=== PATIENT | male | born 1975 | race Caucasian/White ===

== ENCOUNTER 2016-11-09 20:40 | Emergency (ER) | payer OTHER ==
[2016-11-09 20:49] VITALS: BP 150/112
--- NOTE | 2016-11-09 20:50 | ER Document Report ---
ED Medical Screen (RME) - General Stated Complaint: KNEE INJURY Mode of Arrival: Wheelchair Information source: Patient Notes: pt reports with c/o chronic knee pain that worsened three days ago, worse today. Reports he couldn't get out of bed today and was crying. Took has norco but still hurt. Denies trauma. JESSE. Pt wants an MRI. PT reports he had an xray done at his orthopedics on Friday, told he had arthritis. He reports hes had numerous surgeries on the knee. I have greeted and performed a rapid initial assessment of this patient. A comprehensive ED assessment and evaluation of the patient, analysis of test results and completion of the medical decision making process will be conducted by additional ED providers. - Related Data Allergies/Adverse Reactions: No Known Allergies Allergy (Unverified 11/09/16 20:44) Physical Exam - Vital signs Vitals: Temp Pulse Resp BP Pulse Ox 97.8 F 88 18 150/112 H 97 11/09/16 20:44 11/09/16 20:44 11/09/16 20:44 11/09/16 20:44 11/09/16 20:44 Course - Vital Signs Vital signs: Temp Pulse Resp BP Pulse Ox 97.8 F 88 18 150/112 H 97 11/09/16 20:44 11/09/16 20:44 11/09/16 20:44 11/09/16 20:44 11/09/16 20:44
--- NOTE | 2016-11-09 22:52 | ER Document Report ---
ED General - General Chief Complaint: Knee Pain Stated Complaint: KNEE INJURY Mode of Arrival: Wheelchair Notes: Patient is 41-year-old male who presents with complaint of pain in his left knee. Patient says he went to stand up this morning and felt pop in his knee. Did not twist. It did not slight forward. He says his eye followed by a local orthopedist for his chronic knee problems. Patient has a right lower extremity amputation and therefore uses a electric wheelchair most of time. He denies any other injuries. No other points of pain. He's had some swelling in his left knee sepsis occurred. TRAVEL OUTSIDE OF THE [place] IN LAST 30 DAYS: No - Related Data Allergies/Adverse Reactions: No Known Allergies Allergy (Unverified 11/09/16 20:44) Past Medical History - General Information source: Patient - Social History Smoking Status: Never Smoker Chew tobacco use (# tins/day): No Frequency of alcohol use: None Drug Abuse: None Family History: Reviewed & Not Pertinent Patient has suicidal ideation: No Patient has homicidal ideation: No Renal/ Medical History: Denies: Hx Peritoneal Dialysis Review of Systems - Review of Systems Notes: My Normal Review Basic REVIEW OF SYSTEMS: CONSTITUTIONAL : Denies fever, chills, or sweats. Denies recent illness. EENT: Denies eye, ear, throat, or mouth pain or symptoms. Denies nasal or sinus congestion. CARDIOVASCULAR: Denies chest pain. RESPIRATORY: Denies cough, cold, or chest congestion. Denies shortness of breath, difficulty breathing, or wheezing. GASTROINTESTINAL: Denies abdominal pain. Denies nausea, vomiting, or diarrhea. Denies constipation. Last BM: GENITOURINARY: Denies difficulty urinating, painful urination, burning, frequency, or blood in urine. FEMALE GENITOURINARY: Denies vaginal bleeding, abnormal or irregular periods. LMP: MUSCULOSKELETAL: Left knee pain SKIN: Denies rash or skin lesions. HEMATOLOGIC : Denies easy bruising or bleeding. LYMPHATIC: Denies swollen, enlarged glands. NEUROLOGICAL: Denies altered mental status or loss of consciousness. Denies headache. Denies weakness or paralysis or loss of use of either side. Denies problems with gait or speech. Denies sensory or motor loss. ALL OTHER SYSTEMS REVIEWED AND NEGATIVE. Physical Exam - Vital signs Vitals: Temp Pulse Resp BP Pulse Ox 97.8 F 88 18 150/112 H 97 03/11/17 20:44 11/09/16 20:44 11/09/16 20:44 11/09/16 20:44 11/09/16 20:44 - Notes Notes: General Appearance: Well nourished, alert, cooperative, no acute distress, mild obvious discomfort. Vitals: reviewed, See vital signs table. Extremities: , good pulses in all extremities, some swelling in the left knee. Patient has pain with any movement of the left knee. Pain is mostly in the lateral aspect anterior aspect of left knee. He is able extend the knee against gravity but has pain in doing so. No ligamentous laxity on exam. Skin: warm, dry, appropriate color, no rash Neuro: speech clear, oriented x 3, normal affect, responds appropriately to questions. Course - Vital Signs Vital signs: Temp Pulse Resp BP Pulse Ox 97.8 F 88 18 150/112 H 97 11/09/16 20:44 11/09/16 20:44 11/09/16 20:44 11/09/16 20:44 11/09/16 20:44 - Transfer of Care Notes: 11/09/16 23:05 Patient's history and location of pain is consistent with either a cruciate ligament tear or a possible lateral collateral ligament tear. Patient is oriented seemed orthopedic doctor for his chronic knee problems. He agrees to follow call their office Friday morning for close follow-up. I encouraged him to return to the ER if has a further concerns. His opiate pain medication at home. I will give him a dose of pain medication here to help take the edge off the pain so he can rest better today. I encouraged him to be nonweightbearing. He has a knee brace at home in which he will start to wear again. Patient's blood pressure is little elevated by suspected is more elevated than usual due to his pain. Dictation of this chart was performed using voice recognition software; therefore, there may be some unintended grammatical errors. 11/09/16 23:07 Discharge - Discharge Clinical Impression: Knee pain, acute Qualifiers: Laterality: left Qualified Code(s): M25.562 - Pain in left knee Condition: Good Disposition: HOME, SELF-CARE Additional Instructions: Your x-ray shows a small effusion but no fracture. These be sure to wear your knee brace and not to bear weight on your knee. Please call your orthopedic surgeon Rubio morning to make an appointment this week. I suspect that you have a ligament tear. I suspect is either a cruciate ligament tare or possible lateral collateral ligament tare. Please return to the ER if you have any further concerns. Referrals: ESTUARDO LONG MD [ACTIVE STAFF] - 11/11/16
[2016-11-09] MEDS ORDERED: HYDROMORPHONE HCL INJ/PF 2 MG/ML AMPULE IM ONE (22:56)
== END 2016-11-09 23:42 | disposition home or self-care (01) ==
LOC: ER 20:40
DX: M25.562 Pain in left knee (principal)
CPT/HCPCS: 99283; 96372; 73562; J1170

== ENCOUNTER → 2016-12-05 | Outpatient (CLI) | payer MEDICARE, MEDICAID | LOC: RAD 10:05 | PROVIDERS: ATTEND Family Medicine | DX: M25.562 Pain in left knee (principal); M17.12 Unilateral primary osteoarthritis, left knee ==

== ENCOUNTER → 2017-06-19 | Day surgery (SDC) | payer MEDICARE, MEDICAID ==
[~2017-06-19] MED LIST: BUPIVACAINE HCL 0.5 % INJ/PF 30 ML SDV ONE
--- NOTE | 2017-06-19 12:18 | Operative Report ---
PROCEDURE: KNEE RADIOFREQUENCY left under ultrasound guidance Preoperative Diagnosis: Left knee osteoarthritis Postoperative Diagnosis: Left knee osteoarthritis 1. Superolateral genicular branch from the vastus lateralis 2. Superomedial genicular branch from the vastus medialis 3. Inferomedial genicular branch from the saphenous nerve DATE OF PROCEDURE: 19 June 2017 ANESTHESIA: Local anesthesia COMPLICATIONS: None reported PROCEDURE IN DETAIL: Hx/PE/meds/allergies/applicable labs reviewed. No changes and no contraindications were found. Full description of the procedure was provided including benefits as well as possible complications including transient increased pain, stomach irritation, mood alteration, transient weakness or parasthesias as well as more serious nerve injury, bleeding, infection or allergic reaction. Informed consent was obtained and documented. The patient was brought to the procedure room and placed on the exam table in a comfortable supine position. The place for needle placement was obtained by manual palpation with ultrasound confirmation. The sterile field was prepared by chloroprep and sterile drapes. Local anesthesia superficial and deep was provided by local infiltration of 2% lidocaine. A 17g 50mm radiofrequency introducer needle with a 4 mm active tip was placed overlying the left knee joint and using fluoroscopic guidance the needle was advanced to a bony endpoint on the superiolateral portion of the femoral condyle of the left knee. A second needle was advanced to a bony endpoint on the superiomedial portion of the femoral condyle. A third needle was then placed over the inferiomedial portion of the tibial condyle until a bony endpoint was met. Attempted aspiration yielded no blood. Transverse ultrasound views showed all the needles at 50% depth of the femur and tibia. Motor stimulation was tested at 2.0 volts with no leg movement. Images were saved in AP and lateral. A mixture consisting of 0.5% bupivacaine was slowly injected. Then a radiofrequency ablation of each of the geniculate nerves were done at 80 degrees Celsius for 2 minutes and 30 seconds each. The needles were withdrawn. The patient tolerated the procedure well. After observation the patient was discharged with instructions and follow up. They were also provided contact information to call regarding any concerning symptoms or questions. IMPRESSION: 1. Successful left geniculate knee radiofrequency ablation was performed. 2. The patient was given prescription of home medicines. 3. RTC in 1-2 week(s).
== END ==
LOC: RAD 11:56
PROVIDERS: ATTEND Family Medicine
DX: M17.12 Unilateral primary osteoarthritis, left knee (principal)
CPT/HCPCS: 64640

== ENCOUNTER → 2018-01-23 | Day surgery (SDC) | payer MEDICARE, MEDICAID ==
[~2018-01-23] MED LIST changes: -BUPIVACAINE HCL 0.5 % INJ/PF 30 ML SDV ONE; +LIDOCAINE 1% INJ-PF (10 MG/ML) 30 ML SDV ONE
--- NOTE | 2018-01-23 15:54 | RADIOLOGY REPORT (SQ) ---
EXAM DESCRIPTION: ARTHRO SHOULDER INJECTION; FLUORO/NEEDLE PLACEMENT COMPLETED DATE/TIME: 01/23/2018 2:18 pm; 01/23/2018 2:17 pm REASON FOR STUDY: OTHER SPECIFIED ARTHRITIS, LEFT SHOULDER (M13.812) M13.812 OTHER SPECIFIED ARTHRI TIS, LEFT SHOULDER COMPARISON: None. FLUOROSCOPY TIME: 56 seconds 1 digital fluoro image saved to PACS. LIMITATIONS: None. PROCEDURE: Procedure, risks, benefits and alternatives explained to patient who then gave written co nsent. The posterior left shoulder was marked and a time out was called for correct procedure verific ation. Posterior entry site marked using fluoroscopic guidance. Shoulder prepped and draped using s terile technique. Local anesthesia achieved using 10 mL of 1% lidocaine injection. 22 g spinal nee dle introduced into the joint space under direct fluoroscopic visualization. Non-ionic contrast insti lled to confirm intra-articular position. Dilute Isovue-300 solution then injected. Needle removed and entry site covered with sterile bandage. No immediate complications noted. TECHNIQUE: Digital images acquired during fluoroscopy and stored on PACS. Patient immediately take n to the MR suite for additional imaging. INJECTION LOCATION: Left posterior glenohumeral joint CONTRAST TYPE AND AMOUNT: 3 mL of Isovue-300 was injected followed by 12 mL of dilute Isovue/saline m ixture for CT arthrogram IMPRESSION: SUCCESSFUL NEEDLE PLACEMENT AND INJECTION FOR LEFT SHOULDER CT ARTHROGRAM USING POSTERIO R APPROACH. COMMENT: Quality ID 145: Final reports for procedures using fluoroscopy that document radiation exp osure indices, or exposure time and number of fluorographic images (if radiation exposure indices are not available) TECHNICAL DOCUMENTATION: JOB ID: [id number] 1942 [employer]- All Rights Reserved Reading location - IP/workstation name: [facility]-[email or web address]
--- NOTE | 2018-01-23 15:54 | RADIOLOGY REPORT (SQ) ---
EXAM DESCRIPTION: ARTHRO SHOULDER INJECTION; FLUORO/NEEDLE PLACEMENT COMPLETED DATE/TIME: 01/23/2018 2:18 pm; 01/23/2018 2:17 pm REASON FOR STUDY: OTHER SPECIFIED ARTHRITIS, LEFT SHOULDER (M13.812) M13.812 OTHER SPECIFIED ARTHRI TIS, LEFT SHOULDER COMPARISON: None. FLUOROSCOPY TIME: 56 seconds 1 digital fluoro image saved to PACS. LIMITATIONS: None. PROCEDURE: Procedure, risks, benefits and alternatives explained to patient who then gave written co nsent. The posterior left shoulder was marked and a time out was called for correct procedure verific ation. Posterior entry site marked using fluoroscopic guidance. Shoulder prepped and draped using s terile technique. Local anesthesia achieved using 10 mL of 1% lidocaine injection. 22 g spinal nee dle introduced into the joint space under direct fluoroscopic visualization. Non-ionic contrast insti lled to confirm intra-articular position. Dilute Isovue-300 solution then injected. Needle removed and entry site covered with sterile bandage. No immediate complications noted. TECHNIQUE: Digital images acquired during fluoroscopy and stored on PACS. Patient immediately take n to the MR suite for additional imaging. INJECTION LOCATION: Left posterior glenohumeral joint CONTRAST TYPE AND AMOUNT: 3 mL of Isovue-300 was injected followed by 12 mL of dilute Isovue/saline m ixture for CT arthrogram IMPRESSION: SUCCESSFUL NEEDLE PLACEMENT AND INJECTION FOR LEFT SHOULDER CT ARTHROGRAM USING POSTERIO R APPROACH. COMMENT: Quality ID 145: Final reports for procedures using fluoroscopy that document radiation exp osure indices, or exposure time and number of fluorographic images (if radiation exposure indices are not available) TECHNICAL DOCUMENTATION: JOB ID: [id number] [employer]- All Rights Reserved Reading location - IP/workstation name: [email or web address]
--- NOTE | 2018-01-23 16:12 | RADIOLOGY REPORT (SQ) ---
EXAM DESCRIPTION: CT LT UPPER EXTREMITY WITH COMPLETED DATE/TIME: 01/23/2018 2:32 pm REASON FOR STUDY: OTHER SPECIFIED ARTHRITIS, LEFT SHOULDER (M13.812) M13.812 OTHER SPECIFIED ARTHRI TIS, LEFT SHOULDER COMPARISON: None. TECHNIQUE: Axial imaging performed through the leftshoulder with reformatted oblique coronal and obl ique sagittal imaging windowed for bone and soft tissues. All CT scanners at this facility use dose modulation, iterative reconstruction, and/or weight based d osing when appropriate to reduce radiation dose to as low as reasonably achievable (ALARA). [facility]: Dose Right [facility]: CareDose [facility]: Dose Right [facility]: Teradose 4D [facility]: Smart [place] [employer] RADIATION DOSE: CT Rad equipment meets quality standard of care and radiation dose reduction techniq ues were employed. CTDIvol: 28.8 mGy. DLP: 708 mGy-cm. mGy. LIMITATIONS: None. FINDINGS: The study was performed as a CT arthrogram left shoulder. The patient is post left humeral head arthroplasty with a humeral head articular surface prosthesis. No lucency around the hardware worrisome for loosening. There is extensive heterotopic ossification along the posterior left shoulder joint, with heterotopic bone 5 x 1 cm in size along the posterior aspect of the glenohumeral joint/distal infraspinatus musc le and tendon. This bony bar along the posterior joint prevented intra-articular contrast injection from posterior approach. Injected contrast is seen along the superficial muscles. There is a 2 x 2 cm loose body along the anterior inferior aspect of the glenohumeral joint, best carmen wn on sagittal image 28 and coronal image 19. The humeral head abuts the undersurface of the acromion with a [id number] appearance from full-thic kness supraspinatus tear. There is supraspinatus muscle atrophy. The subscapularis muscle and tendon are grossly intact. Acromioclavicular joint exhibits mild bony spurring. Coracoclavicular interval is intact. Left upper lobe in the field of view is unremarkable. There is a 2.5 x 1.7 cm prevascular lymph node on axial image 63. This is nonspecific but abnormal, and CT chest is recommended for followup. IMPRESSION: Post left humeral head arthroplasty. No lucency around the hardware worrisome for loose callie. Full thickness chronic appearing supraspinatus tear Heterotopic ossification/calcification along the posterior glenohumeral joint, along the distal supra spinatus muscle and tendon. TECHNICAL DOCUMENTATION: JOB ID: [id number] Quality ID # [id number]: Final reports with documentation of one or more dose reduction techniques (e.g., Au tomated exposure control, adjustment of the mA and/or kV according to patient size, use of iterative reconstruction technique) 2010 [employer]- All Rights Reserved Reading location - IP/workstation name: [facility]-[email or web address]
== END ==
LOC: RAD 13:16
PROVIDERS: ATTEND Orthopaedic Surgery
DX: M13.812 Other specified arthritis, left shoulder (principal)
CPT/HCPCS: 77002; 23350; 73201; J3490

== ENCOUNTER 2018-02-10 10:09 | Day surgery (SDC) | payer MEDICARE, MEDICAID ==
[~2018-02-10 10:09] MED LIST changes: +HYDROMORPHONE HCL INJ/PF 2 MG/ML AMPULE ONE; +LACTATED RINGERS 1000 ML IV PRN; +LIDOCAINE 0.5% INJ-PF (5 MG/ML) 50 ML SDV SUBCUT PRN; -LIDOCAINE 1% INJ-PF (10 MG/ML) 30 ML SDV ONE
[2018-02-10] MEDS ORDERED: FAMOTIDINE INJ/PF 20 MG/2 ML SDV IV ONE ×2 (10:54→11:00)
[2018-02-10] MEDS ORDERED: FENTANYL CITRATE INJ/PF 250 MCG/5 ML AMPULE ONE (11:11)
[2018-02-10] MEDS ORDERED: LIDOCAINE 2% INJ-PF (20 MG/ML) 10 ML AMPUL ONE (11:11)
[2018-02-10] MEDS ORDERED: MIDAZOLAM 2 MG/2 ML INJ ONE (11:11)
[2018-02-10] MEDS ORDERED: PROPOFOL INJ 200 MG/20 ML VIAL IV ONE (11:12)
[2018-02-10] MEDS ORDERED: ACETAMINOPHEN 1,000 MG/100 ML RTUPB IV ONE (11:12)
[2018-02-10] MEDS ORDERED: PHENYLEPHRINE HCL 0.25% NASAL SPRAY 15 ML ONE (11:13)
[2018-02-10] MEDS ORDERED: LIDOCAINE 2%/EPINEPHRINE INJ 1.7 ML CARTRIDGE ONE (11:25)
[2018-02-10] MEDS ORDERED: BUPIVACAINE HCL 0.5%/EPI 1:200000 INJ 1.8 ML CARTRIDGE ONE (11:26)
[2018-02-10 11:53] LABS: ANION GAP 10 (5-19); BLOOD UREA NITROGEN 13 mg/dL (7-20); CARBON DIOXIDE 23 mmol/L (22-30); CHLORIDE 109 mmol/L (98-107); GLUCOSE 190 mg/dL (75-110); POTASSIUM 4.3 mmol/L (3.6-5.0)
[2018-02-10] MEDS ORDERED: PROMETHAZINE HCL INJ 25 MG/1 ML VIAL IV PRN ×2 (12:49)
[2018-02-10] MEDS ORDERED: MORPHINE SULFATE 10 MG/ML INJ IV PRN (12:49)
[2018-02-10] MEDS ORDERED: MEPERIDINE HCL/PF INJ 25 MG/1 ML DISP.SYRIN IV PRN (12:49)
[2018-02-10] MEDS ORDERED: FENTANYL CITRATE INJ/PF 100 MCG/2 ML AMPUL IV PRN ×3 (12:49)
[2018-02-10] MEDS ORDERED: ONDANSETRON HCL INJ/PF 4 MG/2 ML SDV IV PRN (12:49)
[2018-02-10] MEDS ORDERED: OXYCODONE-ACETAMINOPHEN 5-325 MG TABLET PO PRN ×3 (12:49→13:51)
[2018-02-10] MEDS ORDERED: DIPHENHYDRAMINE HCL 50 MG/ML VIAL IV PRN (12:49)
[2018-02-10] MEDS: FENTANYL CITRATE INJ/PF 100 MCG/2 ML AMPUL ONE ×2 (13:57→16:02)
[2018-02-10] MEDS ORDERED: METOCLOPRAMIDE HCL INJ/PF 10 MG/2 ML SDV ONE (15:12)
[2018-02-10] MEDS ORDERED: DEXAMETHASONE SOD PHOSPHATE INJ 4 MG/1 ML VIAL ONE (15:12)
[2018-02-10] MEDS ORDERED: ONDANSETRON HCL INJ/PF 4 MG/2 ML SDV ONE (15:12)
[2018-02-10] MEDS ORDERED: SUCCINYLCHOLINE CHLORIDE INJ 200 MG/10 ML VIAL ONE (15:12)
--- NOTE | 2018-02-10 16:10 | Operative Report ---
Operative Report DATE OF SURGERY: 02/10/18 PREOPERATIVE DIAGNOSIS: Dental caries and right mandibular anderson POSTOPERATIVE DIAGNOSIS: Same OPERATION: Surgical removal of teeth numbers 1, 2, 3, 4, 5, 6, 7, 8, 9, 10, 11, 12, 13, 14, 15, 16, 18, 19, 21, 22, 23, 24, 25, 26, 27, 28, 29, 30, 31 and 32 with alveoloplasties of all 4 quadrants and removal of the mandibular right anderson SURGEON: NONA FRANKLIN ANESTHESIA: GA TISSUE REMOVED OR ALTERED: Teeth and bone which were discarded COMPLICATIONS: None ESTIMATED BLOOD LOSS: 30 mL INTRAOPERATIVE FINDINGS: Grossly decayed and nonrestorable teeth. Right mandibular anderson. PROCEDURE: The patient was brought into operating room #3 and placed on the operating room table in supine position. General anesthesia was induced via a peripheral IV and continued utilizing nasoendotracheal intubation. The patient was then prepped and draped in the usual fashion for an intraoral procedure. A total of 6 carpules of 2% Lidocaine with 1:100K Epi and for carpules of 0.5% Marcaine with 1:200K Epi were delivered to the planned surgical sites via both infiltration and nerve block. The oral cavity and oropharynx were suctioned and a moistened oropharyngeal throat pack was placed. A bite block was used throughout the procedure. Full thickness mucoperisteal flaps were elevated. Ostectomy was completed as needed. Teeth were sectioned as needed. Teeth were delivered with elevators and forceps. Alveoloplasties were completed using rongeurs and bone files. The right mandibular anderson was removed utilizing a fissure bur on a rotating osteotome and a mallet and chisel. After removal of the anderson the underlying bone was smoothed using a bone file. All sites debrided and irrigated. No sinus exposure noted. Mandible intact post op. GERBER not visualized. Wounds reapproximated and sutured with 4-0 chromic gut. The oral cavity was suctioned and found to be free of debris. The throat pack was removed. The oropharynx was suctioned. Gauze packs were placed bilaterally to aid in continued hemastasis. The patient was awakened from general anesthesia, extubated in the operating room and taken to recovery in spontaneous breathing fashion.
[2018-02-10 16:26] VITALS: BP 120/81
== END 2018-02-10 15:00 | disposition home or self-care (01) ==
LOC: OROUT 10:09
PROVIDERS: ATTEND Dentist Oral and Maxillofacial Surgery
DX: K02.9 Dental caries, unspecified (principal); M27.0 Developmental disorders of jaws; K08.9 Disorder of teeth and supporting structures, unspecified; K13.79 Other lesions of oral mucosa; I10 Essential (primary) hypertension; E66.9 Obesity, unspecified; Z68.41 Body mass index [BMI] 40.0-44.9, adult
CPT/HCPCS: 170; 36415; 80048; 88304; J0131; J0330; J1100; J1170; J2250; J2405; J2704; J2765; J3010; J3490; S0028

== ENCOUNTER 2018-04-29 09:15 | Emergency (ER) | payer MEDICARE, MEDICAID ==
[2018-04-29] MEDS ORDERED: NORMAL SALINE 1000 ML 1,000 ML IV ONE ×2 (09:31→10:47)
[2018-04-29] MEDS ORDERED: FENTANYL CITRATE INJ/PF 100 MCG/2 ML AMPUL IV ONE (09:32)
[2018-04-29] MEDS ORDERED: ONDANSETRON HCL INJ/PF 4 MG/2 ML SDV IV ONE (09:32)
[2018-04-29] MEDS ORDERED: KETOROLAC TROMETHAMINE INJ/PF 30 MG/1 ML SDV IV ONE ×2 (09:32→11:09)
[2018-04-29] MEDS ORDERED: METOCLOPRAMIDE HCL INJ/PF 10 MG/2 ML SDV IV ONE (09:33)
--- NOTE | 2018-04-29 09:35 | ER Document Report ---
ED Medical Screen (RME) - General Chief Complaint: Flank Pain Stated Complaint: FLANK PAIN, HEADACHE Time Seen by Provider: 04/29/18 09:28 Notes: 42 years old male with history of diabetes hypertension right [id number] amputation due to accident, presents with 2-3 day history of fever General body aches and pain particularly over the right flank and mid abdomen. Associated with nausea no vomiting. Denies any dysuria frequency urgency or hematuria. Denies any earache sore throat. Denies any chest pain or difficulty in breathing. TRAVEL OUTSIDE OF THE [place] IN LAST 30 DAYS: No - Related Data Allergies/Adverse Reactions: No Known Allergies Allergy (Verified 04/29/18 09:16) Past Medical History - Social History Chew tobacco use (# tins/day): No Frequency of alcohol use: None Drug Abuse: None - Past Medical History Cardiac Medical History: Reports: Hx Hypertension Denies: Hx Coronary Artery Disease, Hx Heart Attack Pulmonary Medical History: Denies: Hx Asthma, Hx Bronchitis, Hx COPD, Hx Pneumonia Neurological Medical History: Reports: Hx Migraine. Denies: Hx Cerebrovascular Accident, Hx Seizures Endocrine Medical History: Reports: Hx Diabetes Mellitus Type 2 Renal/ Medical History: Reports: Hx Kidney Stones. Denies: Hx Peritoneal Dialysis Musculoskeltal Medical History: Reports Hx Arthritis - bilat shoulders Past Surgical History: Reports: Hx Orthopedic Surgery - L knee, R leg amputation - Immunizations Hx Diphtheria, Pertussis, Tetanus Vaccination: Yes History of Influenza Vaccine for 06/2017 - 10/2017 Season: Yes Influenza Administration Date for 06/2017 - 10/2017 Season: 10/02/17 Physical Exam - Vital signs Vitals: Temp Pulse Resp BP Pulse Ox 100.5 F H 126 H 20 170/96 H 97 04/29/18 09:23 04/29/18 09:23 04/29/18 09:23 04/29/18 09:23 04/29/18 09:23 Course - Vital Signs Vital signs: Temp Pulse Resp BP Pulse Ox 100.5 F H 126 H 20 170/96 H 97 04/29/18 09:23 04/29/18 09:23 04/29/18 09:23 04/29/18 09:23 04/29/18 09:23 Doctor's Discharge - Discharge Referrals: JANET HERNANDEZ DO [Primary Care Provider] - Follow up as needed
[2018-04-29 10:23] LABS: HEMATOCRIT 38.3 % (37.9-51.0); HEMOGLOBIN 12.6 g/dL (13.5-17.0); MEAN CORPUSCULAR HGB CONC 32.9 g/dL (32.0-36.0); MEAN CORPUSCULAR VOLUME 76 fl (80-97); PLATELET COUNT 302 10^3/uL (150-450); RED BLOOD COUNT 5.03 10^6/uL (4.35-5.55); RED CELL DISTRIBUTION WIDTH 16.6 % (11.5-14.0); WHITE BLOOD COUNT 17.7 10^3/uL (4.0-10.5)
[2018-04-29] MEDS ORDERED: FENTANYL CITRATE INJ/PF 100 MCG/2 ML AMPUL ONE (10:23)
[2018-04-29 10:30] LABS: APPEARANCE,URINE CLEAR; BILIRUBIN,URINE NEGATIVE (NEGATIVE); COLOR,URINE STRAW; GLUCOSE, URINE >=500 mg/dL (NEGATIVE); KETONES,URINE NEGATIVE (NEGATIVE); LEUKOCYTE ESTERASE,URINE MODERATE (NEGATIVE); NITRITE,URINE NEGATIVE (NEGATIVE); PROTEIN,URINE NEGATIVE (NEGATIVE); UROBILINOGEN,URINE NEGATIVE mg/dL (<2.0)
[2018-04-29] MEDS ORDERED: CEFTRIAXONE 1 GM/D5W RTU 50 ML IV ONE (10:47)
--- NOTE | 2018-04-29 10:50 | RADIOLOGY REPORT (SQ) ---
EXAM DESCRIPTION: ACUTE ABDOMEN SERIES COMPLETED DATE/TIME: 04/29/2018 10:35 am REASON FOR STUDY: Abdominal pain COMPARISON: None. NUMBER OF VIEWS: Three views. TECHNIQUE: Frontal chest, supine abdomen and upright/decubitus abdomen radiographic images acquired. LIMITATIONS: None. FINDINGS: CHEST: Lungs clear of infiltrates. FREE AIR: None. No abnormal gas collections. BOWEL GAS PATTERN: Nonobstructive pattern. No dilated loops or air fluid levels. CALCIFICATIONS: No suspicious calcifications. HARDWARE: IVC filter. Mesh graft anchors. SOFT TISSUES: No gross mass or suggestion of organomegaly. BONES: No acute abnormality. There is deformity of the right side of the pelvis from prior trauma. OTHER: No other significant finding. IMPRESSION: NO RADIOGRAPHIC EVIDENCE FOR ACUTE ABDOMINAL DISEASE. TECHNICAL DOCUMENTATION: JOB ID: [id number] [employer]- All Rights Reserved Reading location - IP/workstation name: [email or web address]
[2018-04-29 10:52] LABS: ALANINE AMINOTRANSFERASE 18 U/L (21-72); ALBUMIN 3.9 g/dL (3.5-5.0); ALKALINE PHOSPHATASE 133 U/L (38-126); ANION GAP 14 (5-19); ASPARTATE AMINO TRANSFERASE 19 U/L (17-59); BILIRUBIN,DIRECT 0.5 mg/dL (0.0-0.4); BILIRUBIN,TOTAL 1.3 mg/dL (0.2-1.3); BLOOD UREA NITROGEN 9 mg/dL (7-20); CALCIUM 9.7 mg/dL (8.4-10.2); CARBON DIOXIDE 17 mmol/L (22-30); CHLORIDE 108 mmol/L (98-107); GLUCOSE 368 mg/dL (75-110); LIPASE 52.3 U/L (23-300); POTASSIUM 4.1 mmol/L (3.6-5.0); SODIUM 139.3 mmol/L (137-145); TOTAL PROTEIN 7.6 g/dL (6.3-8.2)
[2018-04-29] MEDS ORDERED: ACETAMINOPHEN 325 MG TABLET PO ONE (10:54)
[2018-04-29 10:59] LABS: ABSOLUTE LYMPHOCYTES# (MANUAL) 1.1 10^3/uL (0.5-4.7); ABSOLUTE MONOCYTES # (MANUAL) 0.5 10^3/uL (0.1-1.4); ABSOLUTE NEUTROPHILS# (MANUAL) 16.1 10^3/uL (1.7-8.2); BASOPHILS % (MANUAL) 0 % (0-2); EOSINOPHILS % (MANUAL) 0 % (0-6); LYMPHOCYTES % (MANUAL) 6 % (13-45); MONOCYTES % (MANUAL) 3 % (3-13); SEGMENTED NEUTROPHILS % (MAN) 91 % (42-78); TOTAL CELLS COUNTED 100
--- NOTE | 2018-04-29 10:59 | ER Document Report ---
ED General - General Chief Complaint: Flank Pain Stated Complaint: FLANK PAIN, HEADACHE Time Seen by Provider: 04/29/18 09:28 TRAVEL OUTSIDE OF THE [place] 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 Patient states that he had one episode of vomiting this morning. Patient states that he has been eating and drinking without any difficulties otherwise and has been pushing fluids. He denies any drug allergies. Patient states that he does spend some time outside sitting in the [place], but is otherwise does not go out in the boothe or tall grass. He has not noticed any ticks or tick bites. He denies any drug allergies. Patient states that his discomfort in the middle lower abdomen does not radiate. Patient has had a history of kidney stones, but states that this is not like a kidney stone for him. Patient states that he had flank pain with his kidney stones before and does not have that at this time. Denies any headache, head injury, neck pain/ stiffness, changes in vision/speech/mentation/hearing, URI, sore throat, chest pain, palpitations, syncope, cough, shortness of breath, wheeze, dyspnea, diarrhea, urinary retention, dysuria, hematuria, loss of control of bowel or bladder, numbness/tingling, saddle anesthesia, muscle paralysis/weakness, or rash. - Related Data Allergies/Adverse Reactions: No Known Allergies Allergy (Verified 04/29/18 09:16) Past Medical History - Social History Smoking Status: Never Smoker Chew tobacco use (# tins/day): No Frequency of alcohol use: None Drug Abuse: None Family History: Reviewed & Not Pertinent Patient has suicidal ideation: No Patient has homicidal ideation: No - Past Medical History Cardiac Medical History: Reports: Hx Hypertension Denies: Hx Coronary Artery Disease, Hx Heart Attack Pulmonary Medical History: Denies: Hx Asthma, Hx Bronchitis, Hx COPD, Hx Pneumonia Neurological Medical History: Reports: Hx Migraine. Denies: Hx Cerebrovascular Accident, Hx Seizures Endocrine Medical History: Reports: Hx Diabetes Mellitus Type 2 Renal/ Medical History: Reports: Hx Kidney Stones. Denies: Hx Peritoneal Dialysis Musculoskeletal Medical History: Reports Hx Arthritis - bilat shoulders Past Surgical History: Reports: Hx Orthopedic Surgery - L knee, R leg amputation - Immunizations Hx Diphtheria, Pertussis, Tetanus Vaccination: Yes Review of Systems - Review of Systems -: Yes All other systems reviewed and negative Physical Exam - Vital signs Vitals: Temp Pulse Resp BP Pulse Ox 100.5 F H 126 H 20 170/96 H 97 04/29/18 09:23 04/29/18 09:23 04/29/18 09:23 04/29/18 09:23 04/29/18 09:23 - Notes Notes: PHYSICAL EXAMINATION: GENERAL: Well-appearing, well-nourished and in no acute distress. HEAD: Atraumatic, normocephalic. EYES: Pupils equal round and reactive to light, extraocular movements intact, sclera anicteric, conjunctiva are normal. ENT: Nares patent and without discharge. oropharynx clear without exudates. No tonsilar hypertrophy or erythema. Moist mucous membranes. NECK: Normal range of motion, supple without lymphadenopathy LUNGS: Breath sounds clear to auscultation bilaterally and equal. No wheezes rales or rhonchi. HEART: Regular rate and rhythm without murmurs, rubs, gallops. ABDOMEN: Soft, nondistended abdomen. No guarding, no rebound. No masses appreciated. Normal bowel sounds present. No CVA tenderness bilaterally. + mild tenderness to the suprapubic area. No tenderness at Mc[place]. Musculoskeletal: FROM to passive/active. Strength 5+/5. Above knee amputation, rt. Extremities: No cyanosis, clubbing, or edema b/l. Peripheral pulses 2+. Capillary refill less than 3 seconds. NEUROLOGICAL: Cranial nerves grossly intact. Normal speech, normal gait. PSYCH: Normal mood, normal affect. SKIN: Warm, Dry, normal turgor, no rashes or lesions noted. Course - Re-evaluation Re-evalutation: 04/29/18 13:25 Patient is a well-hydrated 42-year-old male who presents to the ED with fever, urinary yeast infxn, and an acute UTI. Vitals are acceptable without any significant tachycardia, tachypnea, or hypoxia at this time. PE is otherwise unremarkable. Patient had some mild tenderness at the suprapubic area which would correlate well with his urinalysis results. Urine culture is pending. 150 mg of Diflucan given p.o. today as well as Toradol IV, fluids, and 1 g of Rocephin. Acute abd series negative. CBC showed an elevated white count at 17.7 with left shift. CMP is acceptable at this time, did show elevated glucose without any gap. There is no hyponatremia and no elevated LFTs aside from minimal elevation to the alk phos, and no reported tick bite or known tick on the body to have a high suspicion for Whitfield spotted fever, but will still remain within the differential. Patient is nontoxic-appearing and is tolerating p.o. without any difficulties. I did review this with Dr. Sahu, no other work up warranted at this time. I will send him home with a prescription for Keflex. Conservative measures for symptoms otherwise. Recheck with your PCM in 2-3 days. Return to the ED with any worsening/concerning symptoms otherwise as reviewed in discharge. Patient is in agreement. - Vital Signs Vital signs: Temp Pulse Resp BP Pulse Ox 99.0 F 98 18 125/80 98 04/29/18 13:15 04/29/18 12:33 04/29/18 12:33 04/29/18 12:33 04/29/18 12:33 - Laboratory Result Diagrams: 04/29/18 10:00 04/29/18 10:00 Laboratory results interpreted by me: 04/29/18 04/29/18 04/29/18 10:00 10:00 10:00 WBC 17.7 H Hgb 12.6 L MCV 76 L MCH 25.0 L RDW 16.6 H Seg Neuts % (Manual) 91 H Lymphocytes % (Manual) 6 L Abs Neuts (Manual) 16.1 H Chloride 108 H Carbon Dioxide 17 L Glucose 368 H Direct Bilirubin 0.5 H ALT 18 L Alkaline Phosphatase 133 H Urine Glucose (UA) >=500 H Urine Blood MODERATE H Ur Leukocyte Esterase MODERATE H Discharge - Discharge Clinical Impression: Acute UTI (urinary tract infection), Yeast UTI Fever Qualifiers: Fever type: unspecified Qualified Code(s): R50.9 - Fever, unspecified Condition: Stable Disposition: HOME, SELF-CARE Instructions: Cephalexin ([facility]), Urinary Tract Infection ([facility]) Additional Instructions: Push fluids (i.e. water, cranberry juice--caution as it may cause elevation in your sugar levels) Proper hygenic technique Keep the skin clean Tylenol/ibuprofen as needed Take medications as directed F/u with your PCM in 2-3 days for a recheck Consider consult with a Urologist for ongoing/worsening symptoms. Return to the ED with any worsening symptoms and/or development of fever, headache, chest pain, palpitations, syncope, shortness of breath, trouble breathing, abdominal pain, n/v/d, blood in stool/urine, loss of control of bowel /bladder, urinary retention, or other worsening symptoms that are concerning to you. Prescriptions: Cephalexin Monohydrate [Keflex 500 mg Capsule] 500 mg PO TID #21 capsule Forms: Elevated Blood Pressure Referrals: [facility] [Provider Group] - Follow up as needed
[2018-04-29 11:00] LABS: ANISOCYTOSIS 1+; HYPOCHROMASIA SLIGHT; OVALOCYTES 1+; PLATELET COMMENT ADEQUATE; POIKILOCYTOSIS 1+
[2018-04-29] MEDS ORDERED: CEFTRIAXONE INJ 1000 MG VIAL IV ONE (11:00)
[2018-04-29] MEDS ORDERED: FLUCONAZOLE 100 MG TABLET PO ONE (11:11)
[2018-04-29] MEDS ORDERED: CEFTRIAXONE SODIUM 1,000 MG in DEXTROSE 5%-WATER 50 ML IV ONE (12:00)
[2018-04-29 12:35] VITALS: BP 125/80
== END 2018-04-29 13:58 | disposition home or self-care (01) ==
LOC: ER 09:15
DX: B37.49 Other urogenital candidiasis (principal); R50.9 Fever, unspecified; R10.9 Unspecified abdominal pain; R51 Headache; E11.9 Type 2 diabetes mellitus without complications; I10 Essential (primary) hypertension; Z87.442 Personal history of urinary calculi
CPT/HCPCS: 96376; 99284; 96361; 96375; 96365; 36415; 87086; 83690; 85025; 87088; 80053; 81001; 87186; 74022; J3010; J1885; J2765; J0696; J2405; J7030; A9270

== ENCOUNTER → 2018-05-26 | Outpatient (CLI) | payer OTHER, MEDICARE, MEDICAID ==
[2018-05-26 11:15] LABS: ABSOLUTE EOSINOPHILS # (AUTO) 0.2 10^3/uL (0.0-0.6); ABSOLUTE LYMPHOCYTES (AUTO) 1.3 10^3/uL (0.5-4.7); ABSOLUTE MONOCYTES (AUTO) 0.4 10^3/uL (0.1-1.4); ABSOLUTE NEUT (AUTO) 4.6 10^3/uL (1.7-8.2); BASOPHILS % (AUTO) 0.3 % (0-2); HEMATOCRIT 36.3 % (37.9-51.0); LYMPHOCYTES % (AUTO) 19.8 % (13-45); MEAN CORPUSCULAR HEMOGLOBIN 24.5 pg (27.0-33.4); MEAN CORPUSCULAR VOLUME 74 fl (80-97); MONOCYTES % (AUTO) 6.2 % (3-13); PLATELET COUNT 343 10^3/uL (150-450); RED BLOOD COUNT 4.89 10^6/uL (4.35-5.55); RED CELL DISTRIBUTION WIDTH 14.9 % (11.5-14.0); SEGMENTED NEUTROPHILS % (AUTO) 70.7 % (42-78); TOTAL CELLS COUNTED % (AUTO) 100 %; WHITE BLOOD COUNT 6.5 10^3/uL (4.0-10.5)
[2018-05-26 11:16] LABS: AMORPHOUS SEDIMENT,URINE TRACE /HPF; APPEARANCE,URINE CLOUDY; BILIRUBIN,URINE NEGATIVE (NEGATIVE); COLOR,URINE YELLOW; GLUCOSE, URINE 150 mg/dL (NEGATIVE); KETONES,URINE NEGATIVE (NEGATIVE); LEUKOCYTE ESTERASE,URINE LARGE (NEGATIVE); NITRITE,URINE NEGATIVE (NEGATIVE); PROTEIN,URINE 30 mg/dL (NEGATIVE); URINE SPECIFIC GRAVITY 1.014; UROBILINOGEN,URINE NEGATIVE mg/dL (<2.0)
--- NOTE | 2018-05-26 11:24 | RADIOLOGY REPORT (SQ) ---
EXAM DESCRIPTION: CHEST PA/LATERAL COMPLETED DATE/TIME: 05/26/2018 11:06 am REASON FOR STUDY: PRE-OP COMPARISON: None. EXAM PARAMETERS: NUMBER OF VIEWS: two views TECHNIQUE: Digital Frontal and Lateral radiographic views of the chest acquired. RADIATION DOSE: NA LIMITATIONS: none FINDINGS: LUNGS AND PLEURA: No opacities, masses or pneumothorax. No pleural effusion. MEDIASTINUM AND HILAR STRUCTURES: No masses or contour abnormalities. HEART AND VASCULAR STRUCTURES: Heart normal size. No evidence for failure. BONES: No acute findings. HARDWARE: None in the chest. OTHER: Prior left humeral head arthroplasty. IMPRESSION: 1. NO SIGNIFICANT RADIOGRAPHIC FINDING IN THE CHEST. TECHNICAL DOCUMENTATION: JOB ID: [id number] [employer]- All Rights Reserved Reading location - IP/workstation name: [email or web address]
[2018-05-26 11:36] LABS: ANION GAP 9 (5-19); BLOOD UREA NITROGEN 9 mg/dL (7-20); CALCIUM 8.8 mg/dL (8.4-10.2); CARBON DIOXIDE 26 mmol/L (22-30); CHLORIDE 103 mmol/L (98-107); GLUCOSE 175 mg/dL (75-110); POTASSIUM 3.9 mmol/L (3.6-5.0); SODIUM 137.7 mmol/L (137-145)
--- NOTE | 2018-05-26 16:59 | EKG REPORT ---
SEVERITY:- NORMAL ECG - SINUS RHYTHM : Confirmed by: Cierra Lerner MD 26-May-2018 16:58:28
== END ==
LOC: OD 09:52
PROVIDERS: ATTEND Orthopaedic Surgery
DX: Z01.818 Encounter for other preprocedural examination (principal); E11.9 Type 2 diabetes mellitus without complications
CPT/HCPCS: 36415; 71046; 80048; 81001; 83036; 85025; 93005; 93010

== ENCOUNTER 2018-06-03 05:52 | Day surgery (SDC) | payer OTHER, MEDICARE, MEDICAID ==
[~2018-06-03 05:52] MED LIST changes: +CEFAZOLIN 2 GM/D5W RTU 2 GM/50 ML RTUPB IV PRN; -HYDROMORPHONE HCL INJ/PF 2 MG/ML AMPULE ONE; -LACTATED RINGERS 1000 ML IV PRN; -LIDOCAINE 0.5% INJ-PF (5 MG/ML) 50 ML SDV SUBCUT PRN
[2018-06-03] MEDS ORDERED: CEFAZOLIN 2 GM/D5W RTU 2 GM/50 ML RTUPB IV ONE (06:08)
[2018-06-03] MEDS ORDERED: ONDANSETRON HCL INJ/PF 4 MG/2 ML SDV ONE ×2 (07:00→08:57)
[2018-06-03] MEDS ORDERED: DEXAMETHASONE SOD PHOSPHATE INJ 4 MG/1 ML VIAL ONE ×2 (07:00→08:57)
[2018-06-03] MEDS ORDERED: FENTANYL CITRATE INJ/PF 100 MCG/2 ML AMPUL ONE ×2 (07:00→08:56)
[2018-06-03] MEDS ORDERED: MIDAZOLAM 2 MG/2 ML INJ ONE ×2 (07:00→08:57)
[2018-06-03] MEDS ORDERED: PROPOFOL INJ 200 MG/20 ML VIAL IV ONE ×2 (07:00→08:57)
[2018-06-03] MEDS ORDERED: BUPIVACAINE HCL 0.5 % INJ/PF 30 ML SDV ONE (07:17)
[2018-06-03] MEDS ORDERED: LIDOCAINE 1%/EPINEPHRINE INJ 20 ML VIAL ONE (07:18)
[2018-06-03] MEDS ORDERED: MEPERIDINE HCL/PF INJ 25 MG/1 ML DISP.SYRIN IV PRN (08:26)
[2018-06-03] MEDS ORDERED: OXYCODONE-ACETAMINOPHEN 5-325 MG TABLET PO PRN ×2 (08:26)
[2018-06-03] MEDS ORDERED: PROMETHAZINE HCL INJ 25 MG/1 ML VIAL IV PRN ×2 (08:26)
[2018-06-03] MEDS ORDERED: MORPHINE SULFATE 10 MG/ML INJ IV PRN (08:26)
[2018-06-03] MEDS ORDERED: ONDANSETRON HCL INJ/PF 4 MG/2 ML SDV IV PRN (08:26)
[2018-06-03] MEDS ORDERED: DIPHENHYDRAMINE HCL 50 MG/ML VIAL IV PRN (08:26)
[2018-06-03] MEDS ORDERED: FENTANYL CITRATE INJ/PF 100 MCG/2 ML AMPUL IV PRN ×3 (08:26)
--- NOTE | 2018-06-03 08:43 | Discharge Summary ---
Discharge Summary (SDC) - Discharge Final Diagnosis: Left medial meniscal tear Date of Surgery: 06/03/18 Discharge Date: 06/03/18 Condition: Good Treatment or Instructions: Removed compressive wrap on Friday. The underlying OpSite dressing can be left in place until you return to the orthopedic clinic Prescriptions: Oxycodone HCl [Oxy-Ir 5 mg Tablet] 5 mg PO Q6 PRN #40 tablet PRN Reason: Referrals: DENVER DONALDSON PA [Primary Care Provider] - Discharge Diet: As Tolerated, Regular Discharge Activity: Balance Activity w/Rest, No Driving, No tub bath Home Care Assistance: None Needed Report the Following to Your Physician Immediately: Shortness of Breath, Fever over 101 Degrees, Drainage-Foul Smelling
--- NOTE | 2018-06-03 08:45 | Operative Report ---
Operative Report DATE OF SURGERY: 06/03/18 PREOPERATIVE DIAGNOSIS: Left medial meniscal tear POSTOPERATIVE DIAGNOSIS: Left medial meniscal tear. Extensive osteophytes along the tibial medial rim. Intact ACL. Extensive osteophytes around the trochlear notch. 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 Lateral meniscal tear. Extensive osteophytes in the lateral compartment. Grade 3-4, malacia lateral compartment. Grade 3-4 chondral malacia of the patellofemoral compartment OPERATION: Arthroscopic partial left medial meniscectomy, abrasion chondroplasty of the medial compartment, and limited synovectomy SURGEON: RAQUEL SNEED ANESTHESIA: LMAC ESTIMATED BLOOD LOSS: Minimal PROCEDURE: With the patient supine and operative table the left lower extremities prepped and draped in sterile fashion. The knee is insufflated with accommodation Marcaine, Xylocaine, and epinephrine. Subsequent medial lateral infrapatellar portals are created for the introduction of arthroscope and debridements mentation. Joint is examined in systematic fashion findings as above. Using combination of mechanical shaver and electrocautery can see ablation probe a partial medial meniscectomy was performed. There is a abrasion chondroplasty of fibrillated articular cartilage from the medial femoral condyle, and a partial synovectomy of the anterior medial compartment to improve visualization of the knee. At this point there is such extensive degenerative changes its felt that further arthroscopic manipulation would not really benefit the patient any further. Instrumentation was removed. Photos were reapproximated interrupted nylon. A sterile compressive dressing was applied and the patient returned to PACU in satisfactory condition.
[2018-06-03] MEDS ORDERED: ONDANSETRON 4 MG TAB.RAPDIS PO PRN (08:52)
[2018-06-03] MEDS ORDERED: OXYCODONE HCL IR 5 MG TABLET PO PRN (08:52)
[2018-06-03] MEDS ORDERED: ONDANSETRON 4 MG TAB.RAPDIS SL PRN (09:00)
[2018-06-03] MEDS: FENTANYL CITRATE INJ/PF 100 MCG/2 ML AMPUL ONE ×2 (09:11→09:16)
[2018-06-03] MEDS ORDERED: OXYCODONE HCL IR 5 MG TABLET ONE (09:49)
[2018-06-03 10:56] VITALS: BP 125/80
== END 2018-06-03 10:59 | disposition home or self-care (01) ==
LOC: OROUT 05:52
PROVIDERS: ATTEND Orthopaedic Surgery
DX: S83.242A Other tear of medial meniscus, current injury, left knee, initial encounter (principal); X58.XXXA Exposure to other specified factors, initial encounter; E11.9 Type 2 diabetes mellitus without complications; K21.9 Gastro-esophageal reflux disease without esophagitis; M25.762 Osteophyte, left knee; M22.42 Chondromalacia patellae, left knee; M17.12 Unilateral primary osteoarthritis, left knee; Z79.899 Other long term (current) drug therapy; Z79.1 Long term (current) use of non-steroidal anti-inflammatories (NSAID); Z01.818 Encounter for other preprocedural examination
CPT/HCPCS: 82962; 29881; J2250; J3490 ×2; J1100; J3010; J2405; J0690; 1400; J2704

== ENCOUNTER 2019-05-04 05:55 | Day surgery (SDC) | payer OTHER, MEDICARE, MEDICAID ==
[2019-04-27 10:29] LABS: ABSOLUTE EOSINOPHILS # (AUTO) 0.1 10^3/uL (0.0-0.6); ABSOLUTE LYMPHOCYTES (AUTO) 1.3 10^3/uL (0.5-4.7); ABSOLUTE MONOCYTES (AUTO) 0.5 10^3/uL (0.1-1.4); ABSOLUTE NEUT (AUTO) 5.6 10^3/uL (1.7-8.2); BASOPHILS % (AUTO) 0.5 % (0-2); EOSINOPHILS % (AUTO) 1.9 % (0-6); HEMATOCRIT 39.4 % (37.9-51.0); HEMOGLOBIN 12.8 g/dL (13.5-17.0); LYMPHOCYTES % (AUTO) 17.4 % (13-45); MEAN CORPUSCULAR HGB CONC 32.5 g/dL (32.0-36.0); MEAN CORPUSCULAR VOLUME 77 fl (80-97); MONOCYTES % (AUTO) 6.9 % (3-13); PLATELET COUNT 360 10^3/uL (150-450); RED BLOOD COUNT 5.12 10^6/uL (4.35-5.55); RED CELL DISTRIBUTION WIDTH 15.3 % (11.5-14.0); SEGMENTED NEUTROPHILS % (AUTO) 73.3 % (42-78); TOTAL CELLS COUNTED % (AUTO) 100 %; WHITE BLOOD COUNT 7.6 10^3/uL (4.0-10.5)
--- NOTE | 2019-04-27 10:41 | RADIOLOGY REPORT (SQ) ---
EXAM DESCRIPTION: CHEST PA/LATERAL COMPLETED DATE/TIME: 04/27/2019 9:51 am REASON FOR STUDY: PRE-OP COMPARISON: None. EXAM PARAMETERS: NUMBER OF VIEWS: two views TECHNIQUE: Digital Frontal and Lateral radiographic views of the chest acquired. RADIATION DOSE: NA LIMITATIONS: Mild patient rotation. FINDINGS: LUNGS AND PLEURA: No opacities, masses or pneumothorax. No pleural effusion. MEDIASTINUM AND HILAR STRUCTURES: No masses or contour abnormalities. HEART AND VASCULAR STRUCTURES: Heart normal size. No evidence for failure. BONES: No acute findings. Partially visualized left shoulder hardware. . HARDWARE: None in the chest. OTHER: No other significant finding. IMPRESSION: NO EVIDENCE OF ACUTE CARDIOPULMONARY PROCESS. TECHNICAL DOCUMENTATION: JOB ID: [id number] [employer]- All Rights Reserved Reading location - IP/workstation name: [email or web address]
[2019-04-27 10:53] LABS: ANION GAP 10 (5-19); BLOOD UREA NITROGEN 11 mg/dL (7-20); CALCIUM 9.6 mg/dL (8.4-10.2); CARBON DIOXIDE 24 mmol/L (22-30); CHLORIDE 105 mmol/L (98-107); GLUCOSE 274 mg/dL (75-110); POTASSIUM 4.3 mmol/L (3.6-5.0)
--- NOTE | 2019-04-27 18:56 | EKG REPORT ---
SEVERITY:- ABNORMAL ECG - SINUS RHYTHM LEFT VENTRICULAR HYPERTROPHY : Confirmed by: Jose Manzanares MD 27-Apr-2019 18:56:01
[~2019-05-04 05:55] MED LIST changes: -CEFAZOLIN 2 GM/D5W RTU 2 GM/50 ML RTUPB IV PRN; +CEFAZOLIN SODIUM 2 GM in DEXTROSE 5%-WATER 100 ML IV PRN; +LACTATED RINGERS 1000 ML IV PRN
[2019-05-04] MEDS ORDERED: LIDOCAINE 0.5% INJ-PF (5 MG/ML) 50 ML SDV ONE (06:21)
[2019-05-04] MEDS ORDERED: FENTANYL CITRATE INJ/PF 250 MCG/5 ML AMPULE ONE (06:23)
[2019-05-04] MEDS ORDERED: EPHEDRINE SULFATE INJ 50 MG/1 ML AMPULE ONE (06:23)
[2019-05-04] MEDS ORDERED: MIDAZOLAM 2 MG/2 ML INJ ONE (06:23)
[2019-05-04] MEDS ORDERED: DEXAMETHASONE SOD PHOSPHATE INJ 4 MG/1 ML VIAL ONE (06:23)
[2019-05-04] MEDS ORDERED: FENTANYL CITRATE INJ/PF 100 MCG/2 ML AMPUL ONE ×2 (06:23→12:41)
[2019-05-04] MEDS ORDERED: ONDANSETRON HCL INJ/PF 4 MG/2 ML SDV ONE (06:24)
[2019-05-04] MEDS ORDERED: PROPOFOL INJ 200 MG/20 ML VIAL IV ONE (06:24)
[2019-05-04] MEDS ORDERED: EPINEPHRINE INJ/PF 1 MG/1 ML AMPULE ONE (07:39)
[2019-05-04] MEDS ORDERED: BUPIVACAINE HCL 0.5 % INJ/PF 30 ML SDV ONE (07:39)
[2019-05-04] MEDS ORDERED: METOCLOPRAMIDE HCL INJ/PF 10 MG/2 ML SDV ONE (07:45)
[2019-05-04] MEDS ORDERED: FAMOTIDINE INJ/PF 20 MG/2 ML SDV IV ONE (07:45)
[2019-05-04] MEDS ORDERED: RINGERS SOLUTION,LACTATED 1,000 ML IV ONE (08:00)
[2019-05-04] MEDS ORDERED: MEPERIDINE HCL/PF INJ 25 MG/1 ML DISP.SYRIN IV PRN ×2 (09:30→13:03)
[2019-05-04] MEDS ORDERED: FENTANYL CITRATE INJ/PF 100 MCG/2 ML AMPUL IV PRN ×6 (09:30→13:03)
[2019-05-04] MEDS ORDERED: PROMETHAZINE HCL INJ 25 MG/1 ML VIAL IV PRN ×4 (09:30→13:03)
[2019-05-04] MEDS ORDERED: ONDANSETRON HCL INJ/PF 4 MG/2 ML SDV IV PRN ×3 (09:30→13:03)
[2019-05-04] MEDS ORDERED: MORPHINE SULFATE 10 MG/ML INJ IV PRN ×2 (09:30→13:03)
[2019-05-04] MEDS ORDERED: DIPHENHYDRAMINE HCL 50 MG/ML VIAL IV PRN ×2 (09:30→13:03)
--- NOTE | 2019-05-04 12:04 | Discharge Summary ---
Discharge Summary (SDC) - Discharge Final Diagnosis: Right rotator cuff tear Date of Surgery: 05/04/19 Discharge Date: 05/04/19 Condition: Good Treatment or Instructions: Schedule Follow Up w/ Dr. Reagan Lora @ [facility] for Surgery to be seen in 10-14 days or as scheduled [place]: [place]: May: May remove dressing on postop day #3, keep incision covered and dry. Cryocuff to shoulder May begin pendulum exercises along w/ hand, wrist and elbow range of motion 4x per day or as tolerated. May remove sling for hygiene purposes otherwise continue it at all times. Stool softener of choice when on pain medication. USE OF HNSL-KZL-PIESSDY IBUPROFEN: Ibuprofen (Advil, Nuprin, Medipren, Motrin IB) is a medication for fever and pain control. In addition, it has anti- inflammatory effects which may be beneficial, especially in the treatment of injuries. It's best to take ibuprofen with food. Persons with ulcer disease or allergy to aspirin should notify their physician of this before taking ibuprofen. Ibuprofen can be given every four to six hours, for a total of four doses daily. Age Pain or fever dose Antiinflammatory dose 6-8 yr 200 mg (1 tab) 200 mg (1 tab) 9-11 yr 200 mg (1 tab) 200-400 mg (1-2 tab) 11-14 yr 200-400 mg (1-2 tab) 400 mg (2 tab) 15-adult 400 mg (2 tab) 600 mg (3 tab) ORAL NARCOTIC MEDICATION: You have been given a prescription for pain control. This medication is a narcotic. It's best taken with food, as nausea can result if taken on an empty stomach. Don't operate machinery or drive within six hours of taking this medication. Do not combine this medicine with alcohol, or with any medication which can cause sedation (such as cold tablets or sleeping pills) unless you get permission from the physician. Narcotics tend to cause constipation. If possible, drink plenty of fluids and eat a diet high in fiber and fruits. Please be aware that prescription narcotics also have the potential for abuse. People become addicted to these medications because of the general sense of wellbeing that they induce. This feeling along with a significant reduction in tension, anxiety, and aggression provides a stimulating seductive quality to these drugs. Once your pain is under control, we encourage you to discard your unused narcotics. Referrals: DENVER GOODRICH PA-C [Primary Care Provider] - Discharge Diet: As Tolerated Respiratory Treatments at Home: Deep Breathing/Coughing, Incentive Spirometer Report the Following to Your Physician Immediately: Fever over 101 Degrees, Unusual Bleeding, Redness, Swelling, Warmth, Increased Soreness
[2019-05-04] MEDS ORDERED: LIDOCAINE 2% INJ (20 MG/ML) 20 ML MDV ONE (12:05)
[2019-05-04] MEDS ORDERED: LIDOCAINE 2%/EPINEPHRINE INJ 20 ML VIAL ONE (12:05)
[2019-05-04] MEDS ORDERED: ROPIVACAINE HCL 0.5% INJ/PF (5 MG/1 ML) 30 ML SDV ONE (12:05)
[2019-05-04] MEDS ORDERED: HYDROMORPHONE HCL INJ/PF 2 MG/ML AMPULE IV PRN (12:09)
[2019-05-04] MEDS ORDERED: OXYCODONE-ACETAMINOPHEN 5-325 MG TABLET PO PRN (12:09)
--- NOTE | 2019-05-04 12:09 | Operative Report ---
Operative Report DATE OF SURGERY: 05/04/19 PREOPERATIVE DIAGNOSIS: Right rotator cuff tear with impingement syndrome, AC j oint DJD POSTOPERATIVE DIAGNOSIS: Same OPERATION: Right rotator cuff repair with superior capsular reconstruction, acromioplasty, biceps tenotomy, distal clavicle excision SURGEON: JANET HERNANDEZ ANESTHESIA: GA COMPLICATIONS: None ESTIMATED BLOOD LOSS: Minimal PROCEDURE: Indication for above procedure: 43-year-old male with history of right below-knee amputation has developed significant rotator cuff pathology in his bilateral shoulders including left shoulder arthroplasty with rotator cuff repair. Patient has developed rotator cuff symptoms greater on the right than the left. Has failed conservative measures including injections without resolution. At that point decision was made to proceed with operative intervention. Risk and benefits were explained patient verbalized understanding consented for surgical procedure. Procedure In Detail: Patient was seen and evaluated in the preoperative holding area. The RIGHT upper extremity was initialized and marked. Patient received 2g of Ancef IV for bacterial prophylaxis. Patient was taken back to the operative room where transferred to the operative table and placed under general anesthesia. Once they were adequately anesthetized patient placed in the beachchair position. Cervical spine was placed in neutral position all bony prominences were padded including nonoperative upper extremity and bilateral lower extremity. A surgical team debriefing was performed ensuring all instrumentation was available, the surgical procedure was discussed with possible concerns reviewed. The upper extremity was prepped with ChloraPrep draped in a sterile fashion. A timeout was done identifying correct patient, procedure and extremity everyone in attendance agree with this and verbalized no concerns. Posterior portal was established arthroscope was then introduced into the glenohumeral joint. Via translation anterior portal was established. Intra- articular arthroscopy demonstrated evidence of rotator cuff tear with mid substance tear longitudinal split of the supraspinatus involving the infraspinous and teres minor. There was evidence of previous biceps soft tissue biceps tenodesis this was debrided to complete tenotomy of the biceps tendon. There was mild degenerative changes along the inferior glenoid with mild degenerative changes of the humeral head. No evidence of subscapularis involvement. Arthroscope was introduced into the subacromial space via triangulation lateral portal was established and a passport cannula placed. Subacromial decompression along with acromioplasty was performed releasing but not excising the coracoac romial ligament. The distal clavicle was also identified. Distal clavicle resection was performed to the anterior portal resecting approximately 8 mm of distal clavicle. To the anterior rotator cuff once again inspection of the rotator cuff demonstrated full-thickness rotator cuff tear with longitudinal split and significant retraction. Soft tissue release was performed and infraspinatus. W ith adequate release the infraspinatus was secured to the teres minor with 2 simple sutures. Additional convergent sutures x2 was placed from the anterior supraspinatus to the posterior supraspinatus which did provide coverage to the humeral head. To provide further fixation decision was made to proceed with double row repair. Via triangulation the appropriate trajectory of the medial row anchors was determined and 2 swivel lock anchors were placed medially. Fiber tape suture was placed anterior and posterior respectively along with additional horizontal mattress sutures from the anchor. These were then secured anteriorly and posteriorly to bring the rotator cuff to the medial row. There was evidence of soft tissue defect along the central aspect of the rotator cuff at the level of the greater tuberosity but the anterior and posterior cable did remain intact. An anterior suture in a posterior suture was placed through a swivel lock anchor and secured into the medial row. Similarly a anterior and posterior limb was then placed through additional swivel lock anchor in place to the lateral portal. Inspection demonstrated coverage of the humeral head however there was the small 5 mm and 5 mm defect but given the intact cable did not feel further fixation or repair was required. At completion the humerus rotated with the rotator cuff as a unit. Surgical incisions were closed with interrupted 3-0 nylon suture Xeroform 4 x 4's and a soft dressing was placed. Patient was placed in a abduction sling. Sponge counts, instrument counts, needle counts were correct. Patient was then awoken from anesthesia. Transferred from the operating room table to the operating room stretcher. There was no intraoperative complications patient tolerated procedure well stable to PACU. Postoperative plan: Patient follow-up the office in 2 weeks at which point we will proceed with suture removal and wound check. Patient will begin physical therapy 6 weeks postoperatively as per conservative rotator cuff repair protocol.
[2019-05-04] MEDS ORDERED: OXYCODONE-ACETAMINOPHEN 5-325 MG TABLET ONE (13:30)
[2019-05-04] MEDS ORDERED: KETOROLAC TROMETHAMINE INJ/PF 30 MG/1 ML SDV ONE (13:32)
[2019-05-04] MEDS ORDERED: ACETAMINOPHEN 1,000 MG/100 ML RTUPB IV ONE (13:32)
[2019-05-04] MEDS ORDERED: SUCCINYLCHOLINE CHLORIDE INJ 200 MG/10 ML VIAL ONE (14:11)
[2019-05-04 14:55] VITALS: BP 160/99
== END 2019-05-04 14:45 | disposition home or self-care (01) ==
LOC: OROUT 05:55
PROVIDERS: ATTEND Orthopaedic Surgery
DX: M75.121 Complete rotator cuff tear or rupture of right shoulder, not specified as traumatic (principal); M19.012 Primary osteoarthritis, left shoulder; M25.512 Pain in left shoulder; E11.9 Type 2 diabetes mellitus without complications; Z86.14 Personal history of Methicillin resistant Staphylococcus aureus infection; G62.9 Polyneuropathy, unspecified; K21.9 Gastro-esophageal reflux disease without esophagitis; Z79.4 Long term (current) use of insulin; Z79.84 Long term (current) use of oral hypoglycemic drugs
CPT/HCPCS: 93005; 36415; 82962; 85025; 80048; 71046; 93010; 01630; 29827; 29828; 29826; 29824; 29999; C1713 ×3; J2795; J2250; J3490 ×4; J0690; J1100; J0171; J3010 ×2; J1885; J2765; J0330; J2405; J7060; J2704; S0028; J0131; 1630

== ENCOUNTER 2019-10-22 15:34 | Emergency (ER) | payer MEDICARE, MEDICAID ==
--- NOTE | 2019-10-22 16:16 | ER Document Report ---
ED Medical Screen (RME) - General Stated Complaint: WELLNESS CHECK Time Seen by Provider: 10/22/19 16:07 Primary Care Provider: DENVER GOODRICH PA-C [Primary Care Provider] - Follow up as needed TRAVEL OUTSIDE OF THE [place] IN LAST 30 DAYS: No COUNTRY TRAVELED TO/FROM: [facility] Notes: 10/22/19 16:13 Patient is a 44-year-old male with a history of multiple chronic medical c onditions presents by recommendation from his family doctor for labs and basic evaluation. Patient was discharged from hospital a couple days ago after being admitted for urosepsis secondary to renal stone as well as having MSSA bacteremia, bilateral pneumonia, and altered mental status. He was on a cruise ship after the start of symptoms because his trip was nonrefundable, but his condition worsened and was disembarked because of the fevers and altered mental status. He was admitted to the hospital at that time and spent about 2 weeks they are receiving antibiotics and further imaging. He had indeterminate, but low probability yield for PE in his lungs as he was becoming hypoxic. He was unable to undergo a CTA of the chest due to body habitus and not being able to raise up his arms. Patient states that he is currently feeling well. He has not been running any fevers recently. He is not currently on any antibiotics. He does continue to have some pain from the ureteral stone/kidney stone. He is urinating normally. No chest pain or shortness of breath at this time. I have treated and performed a rapid initial assessment of this patient. A comprehensive ED assessment and evaluation of the patient, analysis of test results and completion of medical decision making process will be conducted by additional ED providers. PHYSICAL EXAMINATION: GENERAL: Well-appearing, well-nourished and in no acute distress. A&Ox4. Answers questions appropriately. - Related Data Allergies/Adverse Reactions: paper tape Allergy (Uncoded 10/22/19 16:03) Past Medical History - Past Medical History Cardiac Medical History: Reports: Hx Hypertension Denies: Hx Coronary Artery Disease, Hx Heart Attack Pulmonary Medical History: Denies: Hx Asthma, Hx Bronchitis, Hx COPD, Hx Pneumonia Neurological Medical History: Reports: Hx Migraine. Denies: Hx Cerebrovascular Accident, Hx Seizures Endocrine Medical History: Reports: Hx Diabetes Mellitus Type 2 Renal/ Medical History: Reports: Hx Kidney Stones. Denies: Hx Peritoneal Dialysis Musculoskeltal Medical History: Reports Hx Arthritis - bilat shoulders Past Surgical History: Reports: Hx Orthopedic Surgery - L knee, R leg amputation - Immunizations Hx Diphtheria, Pertussis, Tetanus Vaccination: Yes Physical Exam - Vital signs Vitals: Temp Pulse Resp BP Pulse Ox 97.6 F 85 18 147/94 H 97 10/22/19 15:42 10/22/19 15:42 10/22/19 15:42 10/22/19 15:42 10/22/19 15:42 Course - Vital Signs Vital signs: Temp Pulse Resp BP Pulse Ox 97.6 F 85 18 147/94 H 97 10/22/19 15:42 10/22/19 15:42 10/22/19 15:42 10/22/19 15:42 10/22/19 15:42 Doctor's Discharge - Discharge Referrals: DENVER GOODRICH PA-C [Primary Care Provider] - Follow up as needed
[2019-10-22 16:53] LABS: ABSOLUTE BASOPHILS # (AUTO) 0.1 10^3/uL (0.0-0.2); ABSOLUTE EOSINOPHILS # (AUTO) 0.2 10^3/uL (0.0-0.6); ABSOLUTE LYMPHOCYTES (AUTO) 2.3 10^3/uL (0.5-4.7); ABSOLUTE MONOCYTES (AUTO) 0.6 10^3/uL (0.1-1.4); ABSOLUTE NEUT (AUTO) 4.1 10^3/uL (1.7-8.2); BASOPHILS % (AUTO) 0.9 % (0-2); EOSINOPHILS % (AUTO) 3.2 % (0-6); HEMATOCRIT 36.8 % (37.9-51.0); HEMOGLOBIN 11.9 g/dL (13.5-17.0); LYMPHOCYTES % (AUTO) 31.6 % (13-45); MEAN CORPUSCULAR HEMOGLOBIN 24.9 pg (27.0-33.4); MEAN CORPUSCULAR HGB CONC 32.4 g/dL (32.0-36.0); MEAN CORPUSCULAR VOLUME 77 fl (80-97); MONOCYTES % (AUTO) 8.1 % (3-13); PLATELET COUNT 618 10^3/uL (150-450); RED BLOOD COUNT 4.79 10^6/uL (4.35-5.55); RED CELL DISTRIBUTION WIDTH 19.2 % (11.5-14.0); SEGMENTED NEUTROPHILS % (AUTO) 56.2 % (42-78); TOTAL CELLS COUNTED % (AUTO) 100 %; WHITE BLOOD COUNT 7.4 10^3/uL (4.0-10.5)
--- NOTE | 2019-10-22 17:01 | RADIOLOGY REPORT (SQ) ---
EXAM DESCRIPTION: CHEST 2 VIEWS COMPLETED DATE/TIME: 10/22/2019 4:45 pm REASON FOR STUDY: recheck pneumonia COMPARISON: 04/27/2019 EXAM PARAMETERS: NUMBER OF VIEWS: two views TECHNIQUE: Digital Frontal and Lateral radiographic views of the chest acquired. RADIATION DOSE: NA LIMITATIONS: none FINDINGS: LUNGS AND PLEURA: The broad area of opacification in the left lung MEDIASTINUM AND HILAR STRUCTURES: No masses or contour abnormalities. HEART AND VASCULAR STRUCTURES: Heart normal size. No evidence for failure. BONES: No acute findings. HARDWARE: Left-sided catheter has its tip in the region of the right atrium. OTHER: No other significant finding. IMPRESSION: Pneumonia in the left upper lobe. TECHNICAL DOCUMENTATION: JOB ID: [id number] [employer]- All Rights Reserved Reading location - IP/workstation name: [email or web address]
[2019-10-22 17:03] LABS: APPEARANCE,URINE SLIGHTLY-CLOUDY; BILIRUBIN,URINE NEGATIVE (NEGATIVE); CALCIUM OXALATE CRYSTALS,URINE MANY /HPF; COLOR,URINE YELLOW; GLUCOSE, URINE NEGATIVE (NEGATIVE); KETONES,URINE NEGATIVE (NEGATIVE); PROTEIN,URINE 100 mg/dL (NEGATIVE); URINE SPECIFIC GRAVITY 1.018; UROBILINOGEN,URINE NEGATIVE mg/dL (<2.0)
[2019-10-22 17:13] LABS: ALKALINE PHOSPHATASE 147 U/L (38-126); ANION GAP 11 (5-19); ASPARTATE AMINO TRANSFERASE 25 U/L (17-59); BILIRUBIN,DIRECT 0.1 mg/dL (0.0-0.4); BILIRUBIN,TOTAL 0.7 mg/dL (0.2-1.3); BLOOD UREA NITROGEN 8 mg/dL (7-20); CALCIUM 9.6 mg/dL (8.4-10.2); CARBON DIOXIDE 26 mmol/L (22-30); CHLORIDE 103 mmol/L (98-107); GLUCOSE 127 mg/dL (75-110); POTASSIUM 4.3 mmol/L (3.6-5.0); TOTAL PROTEIN 7.5 g/dL (6.3-8.2)
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
[2019-10-22 17:43] LABS: A TYPE INFLUENZA AG NEGATIVE (NEGATIVE); B INFLUENZA AG NEGATIVE (NEGATIVE)
[2019-10-22] MEDS ORDERED: VANCOMYCIN HCL INJ 1000 MG VIAL IV ONE ×3 (17:51→21:00)
[2019-10-22] MEDS ORDERED: CEFTRIAXONE INJ 1000 MG VIAL IV ONE ×2 (17:53→21:00)
--- NOTE | 2019-10-22 21:32 | RADIOLOGY REPORT (SQ) ---
EXAM DESCRIPTION: CT CHEST ANGIOGRAPHY WITHOUT THEN WITH IV CONTRAST COMPLETED DATE/TME: 10/22/2019 17:22 CLINICAL HISTORY: 44 years, Male, sob COMPARISON: None. TECHNIQUE: Axial images through the chest were performed after the administration of intravenous contrast using a pulmonary embolus protocol. MIPS were performed. This exam was performed according to our departmental dose-optimization program which includes use of Automated Exposure Control, adjustment of the mA and/or kV according to patient size and/or use of iterative reconstruction technique. FINDINGS: No pulmonary embolus is identified. Normal caliber aorta without dissection. Moderate cardiomegaly. No significant pericardial effusion. No coronary artery calcifications. Extensive interstitial and alveolar opacities throughout both lungs primarily in the upper lung zones. The trachea and central airways are clear. No pleural abnormalities. Soft tissues are unremarkable. No acute osseous findings. No acute abnormality within the visualized upper abdomen. IMPRESSION: Negative for pulmonary embolism. Diffuse interstitial and alveolar opacities throughout the lungs primarily in the upper lung zones may related to edema, chronic lung changes or developing bronchopneumonia. Moderate cardiomegaly.
[2019-10-23 00:03] VITALS: BP 126/91
--- NOTE | 2019-10-23 21:57 | EKG REPORT ---
SEVERITY:- NORMAL ECG - SINUS RHYTHM : Confirmed by: Tristin Parada 23-Oct-2019 21:57:05
== END 2019-10-23 00:03 | disposition left against medical advice (07) ==
LOC: ER 15:34
DX: J15.211 Pneumonia due to Methicillin susceptible Staphylococcus aureus (principal); N30.00 Acute cystitis without hematuria; N20.1 Calculus of ureter; Z96.0 Presence of urogenital implants; R53.1 Weakness; R53.81 Other malaise; R05 Cough; R06.02 Shortness of breath; R06.2 Wheezing; E11.9 Type 2 diabetes mellitus without complications; M19.012 Primary osteoarthritis, left shoulder; M19.011 Primary osteoarthritis, right shoulder; G89.29 Other chronic pain; Z79.891 Long term (current) use of opiate analgesic; Z79.899 Other long term (current) drug therapy; Z79.01 Long term (current) use of anticoagulants; Z79.4 Long term (current) use of insulin; Z79.1 Long term (current) use of non-steroidal anti-inflammatories (NSAID); Z91.048 Other nonmedicinal substance allergy status
CPT/HCPCS: 93005; 87040; 36415; 87070; 87086; 87880; 83605; 85025; 80053; 81001; 87804; 71046; 71275; 93010; J0696; J3370; J1642; 36592; 96365; 96366; 96367; 99291; 99292

== ENCOUNTER 2019-10-29 09:12 | Emergency (ER) | payer MEDICARE, MEDICAID ==
--- NOTE | 2019-10-29 10:11 | ER Document Report ---
ED Medical Screen (RME) - General Chief Complaint: Other Stated Complaint: PICC LINE REMOVAL Time Seen by Provider: 10/29/19 10:09 Primary Care Provider: DENVER GOODRICH PA-C [Primary Care Provider] - Follow up as needed TRAVEL OUTSIDE OF THE [place]. IN LAST 30 DAYS: No COUNTRY TRAVELED TO/FROM: [facility] Notes: 10/29/19 10:10 See recent visit for full detail of pt's case. Pt requesting reimaging to assess picc line for possible removal and to recheck for the possible developing bronchopneumona noted on CTA at his last visit. No fever, CP, SOB. I have treated and performed a rapid initial assessment of this patient. A comprehensive ED assessment and evaluation of the patient, analysis of test results and completion of medical decision making process will be conducted by additional ED providers. PHYSICAL EXAMINATION: GENERAL: Well-appearing, well-nourished and in no acute distress. A&Ox4. Answers questions appropriately. - Related Data Allergies/Adverse Reactions: paper tape Allergy (Uncoded 10/22/19 16:03) Past Medical History - Past Medical History Cardiac Medical History: Reports: Hx Hypertension Denies: Hx Coronary Artery Disease, Hx Heart Attack Pulmonary Medical History: Denies: Hx Asthma, Hx Bronchitis, Hx COPD, Hx Pneumonia Neurological Medical History: Reports: Hx Migraine. Denies: Hx Cerebrovascular Accident, Hx Seizures Endocrine Medical History: Reports: Hx Diabetes Mellitus Type 2 Renal/ Medical History: Reports: Hx Kidney Stones. Denies: Hx Peritoneal Dialysis Musculoskeltal Medical History: Reports Hx Arthritis - bilat shoulders Past Surgical History: Reports: Hx Orthopedic Surgery - L knee, R leg amputation - Immunizations Hx Diphtheria, Pertussis, Tetanus Vaccination: Yes Physical Exam - Vital signs Vitals: Temp Pulse Resp BP Pulse Ox 97.8 F 112 H 18 144/77 H 95 10/29/19 09:21 10/29/19 09:21 10/29/19 09:21 10/29/19 09:21 10/29/19 09:21 Course - Vital Signs Vital signs: Temp Pulse Resp BP Pulse Ox 97.8 F 112 H 18 144/77 H 95 10/29/19 09:21 10/29/19 09:21 10/29/19 09:21 10/29/19 09:21 10/29/19 09:21 Doctor's Discharge - Discharge Referrals: DENVER GOODRICH PA-C [Primary Care Provider] - Follow up as needed
--- NOTE | 2019-10-29 11:27 | RADIOLOGY REPORT (SQ) ---
EXAM DESCRIPTION: CHEST 2 VIEWS COMPLETED DATE/TIME: 10/29/2019 11:08 am REASON FOR STUDY: recheck pneumonia, PICC line COMPARISON: 10/22/2019 EXAM PARAMETERS: NUMBER OF VIEWS: two views TECHNIQUE: Digital Frontal and Lateral radiographic views of the chest acquired. RADIATION DOSE: NA LIMITATIONS: none FINDINGS: LUNGS AND PLEURA: Increase bilateral reticular interstitial opacities with minimally impro cuauhtemoc aeration on the left. No large effusion. No pneumothorax. MEDIASTINUM AND HILAR STRUCTURES: Stable. HEART AND VASCULAR STRUCTURES: Enlarged, stable. BONES: No acute findings. HARDWARE: Partially visualized left humeral hardware. Left subclavian central venous catheter tip at cavoatrial junction. Surgical clips overlie upper abdomen. OTHER: No other significant finding. IMPRESSION: Increased bilateral reticular interstitial opacities possibly infectious or edema. Mild ly improved aeration on the left. TECHNICAL DOCUMENTATION: JOB ID: [id number] 2010 [employer]- All Rights Reserved Reading location - IP/workstation name: [email or web address]
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
[2019-10-29] MEDS ORDERED: KETOROLAC TROMETHAMINE 60 MG/2 ML SDV IM ONE (13:50)
[2019-10-29] MEDS ORDERED: OXYCODONE-ACETAMINOPHEN 5-325 MG TABLET PO ONE (13:51)
[2019-10-29 16:05] VITALS: BP 122/81
== END 2019-10-29 16:55 | disposition left against medical advice (07) ==
LOC: ER 09:12
DX: J18.9 Pneumonia, unspecified organism (principal); A49.01 Methicillin susceptible Staphylococcus aureus infection, unspecified site; I10 Essential (primary) hypertension; E11.9 Type 2 diabetes mellitus without complications; Z87.442 Personal history of urinary calculi; Z89.611 Acquired absence of right leg above knee; Z86.14 Personal history of Methicillin resistant Staphylococcus aureus infection
CPT/HCPCS: 99285; 96372; 87040; 71046; J1885; A9270

== ENCOUNTER → 2019-11-17 | Outpatient (CLI) | payer MEDICAID, MEDICARE ==
--- NOTE | 2019-11-17 17:37 | XCELERA REPORT ---
[address] [address] Transthoracic Echocardiogram Report Name: BALA AWAD Age: 44 yrs Gender: Male : 1975 Patient Status: Outpatient Patient Location: Study Date: 11/17/2019 01:55 PM History: Bacteremia Height: 69 in Weight: 266 lb BSA: 2.3 m2 Procedure: A complete two-dimensional transthoracic echocardiogram was performed (2D, M-mode, spectral and color flow Doppler). The study was technically difficult with many images being suboptimal in quality. Reason For Study: BACTEREMIA Previous Evaluation: No previous studies were available. History: MSSA Bactermemia Pneumonia. Ordering Physician: TIMOTHY JONES Performed By: Serena Slaughter Interpretation Summary Poor study quality precludes commenting on valve structure. No large vegetation is seen. If clinical suspisicon of infective endocarditis persists would consider and recommend EMMA. Left ventricular systolic function is normal. The Ejection Fraction estimate is 55-60% The right ventricle is normal in size and function. There is a trace amount of mitral regurgitation There is no aortic valve stenosis There is a trace amount of tricuspid regurgitation There is no pericardial effusion. Poor study quality precludes commenting on valve structure. No large vegetation is seen. If clinical suspisicon of infective endocarditis persists would consider and recommend EMMA. MMode/2D Measurements & Calculations RVDd: 2.7 cm LVIDd: 5.2 cm FS: 32.0 % Ao root diam: 2.6 cm IVSd: 1.0 cm LVIDs: 3.5 cm EDV(Teich): 128.0 ml Ao root area: 5.4 cm2 LVPWd: 0.98 cm ESV(Teich): 51.6 ml EF(Teich): 59.7 % Doppler Measurements & Calculations MV E max cornelius: MV dec slope: Ao V2 max: LV V1 max P.6 cm/sec 693.3 cm/sec2 116.4 cm/sec 3.7 mmHg MV A max cornelius: MV dec time: 0.11 sec Ao max PG: LV V1 max: 67.1 cm/sec 5.4 mmHg 96.3 cm/sec MV E/A: 1.2 PA V2 max: 112.5 cm/sec PA max P.1 mmHg Left Ventricle The left ventricle is grossly normal size. There is mild concentric left ventricular hypertrophy. Left ventricular systolic function is normal. The Ejection Fraction estimate is 55-60%. The transmitral spectral Doppler flow pattern is normal for age. Regional wall motion abnormalities cannot be excluded due to limited visualization. Right Ventricle The right ventricle is normal in size and function. Atria The right atrium is normal. The left atrial size is normal. Mitral Valve The mitral valve is not well visualized. There is a trace amount of mitral regurgitation. Aortic Valve The aortic valve opens well. There is no aortic valvular vegetation. There is no aortic valve stenosis. No aortic regurgitation is present. Tricuspid Valve The tricuspid valve is not well visualized, but is grossly normal. There is no tricuspid valve vegetation. There is a trace amount of tricuspid regurgitation. Tricuspid regurgitation jet envelope not well defined to measure RV systolic pressure accurately. Pulmonic Valve The pulmonic valve is not well visualized. Great Vessels The aortic root is normal size. The inferior vena cava appeared normal and decreased > 50% with respiration (RAP 5-10 mmHg). Effusions There is no pericardial effusion. : TIMOTHY JONES Anil
== END ==
LOC: SP 14:39
PROVIDERS: ATTEND Internal Medicine
DX: R78.81 Bacteremia (principal)
CPT/HCPCS: 93306

== ENCOUNTER 2019-11-29 11:29 | Emergency (ER) | payer MEDICARE ==
--- NOTE | 2019-11-29 11:48 | ER Document Report ---
HPI - HPI Time Seen by Provider: 11/29/19 11:43 Pain Level: Denies Context: Patient is a 44-year-old male who presents the emergency department to have left subclavian central line removed. Patient was on antibiotics at home. His primary care provider sent him to the emergency department to have the line removed. Chest x-ray, labs, and work-up to have the central line removed was done by his primary care provider. - CONSTITUTIONAL Constitutional: DENIES: Fever, Chills - REPRODUCTIVE Reproductive: DENIES: : Past Medical History - Social History Smoking Status: Never Smoker Chew tobacco use (# tins/day): No Frequency of alcohol use: Occasional Drug Abuse: None Family History: Reviewed & Not Pertinent Patient has suicidal ideation: No Patient has homicidal ideation: No - Past Medical History Cardiac Medical History: Reports: Hx Hypertension Denies: Hx Coronary Artery Disease, Hx Heart Attack Pulmonary Medical History: Denies: Hx Asthma, Hx Bronchitis, Hx COPD, Hx Pneumonia Neurological Medical History: Reports: Hx Migraine. Denies: Hx Cerebrovascular Accident, Hx Seizures Endocrine Medical History: Reports: Hx Diabetes Mellitus Type 2 Renal/ Medical History: Reports: Hx Kidney Stones. Denies: Hx Peritoneal Dialysis Musculoskeletal Medical History: Reports Hx Arthritis - bilat shoulders Past Surgical History: Reports: Hx Orthopedic Surgery - L knee, R leg amputation - Immunizations Hx Diphtheria, Pertussis, Tetanus Vaccination: Yes Vertical Provider Document - CONSTITUTIONAL Agree With Documented VS: Yes Exam Limitations: No Limitations General Appearance: No Apparent Distress - INFECTION CONTROL TRAVEL OUTSIDE OF THE [place] IN LAST 30 DAYS: No - HEENT HEENT: Atraumatic, Normocephalic, PERRLA - NECK Neck: Normal Inspection - RESPIRATORY Respiratory: Breath Sounds Normal, No Respiratory Distress - CARDIOVASCULAR Cardiovascular: Regular Rate, Regular Rhythm Pulses: Normal: Radial Notes: Left subclavian single lumen central line noted. Sutured in place. - BACK Back: Normal Inspection - MUSCULOSKELETAL/EXTREMETIES Musculoskeletal/Extremeties: FROM - NEURO Level of Consciousness: Awake, Alert, Appropriate Motor/Sensory: No Motor Deficit, No Sensory Deficit - DERM Integumentary: Warm, Dry Course - Re-evaluation Re-evalutation: 11/29/19 12:56 I attempted to take the patient central line out, but was unable to after nicking the area with a scalpel. Patient was given lidocaine with epinephrine to the area to help with pain. I spoke with Dr. Kaye. Dr. Kaye arrived at bedside and was able to remove the catheter. Patient tolerated the procedure well. - Vital Signs Vital signs: Temp Pulse Resp BP Pulse Ox 98.1 F 98 18 114/56 L 98 11/29/19 11:35 11/29/19 11:35 11/29/19 11:35 11/29/19 11:35 11/29/19 11:35 Procedures - Central Line Left Subclavian Consent obtained: Yes Central line pre-insertion: Sterile PPE donned Anesthetic type: 1% Lidocaine w/epi Notes: 11/29/19 14:50 Central line removal done by myself and Dr. Kaye. Discharge - Discharge Clinical Impression: Encounter for central line care Condition: Stable Disposition: HOME, SELF-CARE Additional Instructions: You are seen today in the emergency department to have your central line removed. Please follow-up with your primary care provider as needed. Referrals: DENVER GOODRICH PA-C [Primary Care Provider] - Follow up as needed
[2019-11-29] MEDS ORDERED: LIDOCAINE 1%/EPINEPHRINE INJ 20 ML VIAL INJ ONE (12:30)
[2019-11-29] MEDS ORDERED: LIDOCAINE 1%/EPINEPHRINE INJ 20 ML VIAL ONE (12:32)
[2019-11-29 13:02] VITALS: BP 142/90
== END 2019-11-29 13:03 | disposition home or self-care (01) ==
LOC: ER 11:29
DX: Z45.2 Encounter for adjustment and management of vascular access device (principal); I10 Essential (primary) hypertension; E11.9 Type 2 diabetes mellitus without complications; Z87.442 Personal history of urinary calculi; Z89.611 Acquired absence of right leg above knee
CPT/HCPCS: 99284; J3490

== ENCOUNTER 2020-01-13 20:59 | Emergency (ER) | payer MEDICARE ==
[2020-01-13 22:18] LABS: APPEARANCE,URINE CLOUDY; BILIRUBIN,URINE NEGATIVE (NEGATIVE); COLOR,URINE YELLOW; GLUCOSE, URINE >=500 mg/dL (NEGATIVE); KETONES,URINE NEGATIVE (NEGATIVE); LEUKOCYTE ESTERASE,URINE LARGE (NEGATIVE); NITRITE,URINE POSITIVE (NEGATIVE); PROTEIN,URINE 30 mg/dL (NEGATIVE); URINE SPECIFIC GRAVITY 1.011; UROBILINOGEN,URINE NEGATIVE mg/dL (<2.0)
[2020-01-13] MEDS ORDERED: NORMAL SALINE 1000 ML 1,000 ML IV ONE ×2 (22:26→23:33)
[2020-01-13] MEDS ORDERED: KETOROLAC TROMETHAMINE INJ/PF 30 MG/1 ML SDV IV ONE (22:27)
--- NOTE | 2020-01-13 22:30 | ER Document Report ---
ED General - General Chief Complaint: Flank Pain Stated Complaint: FEVER/FLANK PAIN Time Seen by Provider: 01/13/20 22:06 Primary Care Provider: DENVER GOODRICH PA-C [Primary Care Provider] - Follow up as needed TRAVEL OUTSIDE OF THE U.[place]. IN LAST 30 DAYS: No - HPI Notes: Patient is a 44-year-old male who presents to the emergency department for evaluation of fever, right flank pain. He states he was told that he has a kidney stone, has an appointment coming up with [facility]. He states over the last several days he has developed increased right-sided back pain. He said urinary frequency. No gross hematuria. He states that 2 days ago he had a fever of 102. He states he saw his primary care provider, who told him "all of my labs are elevated" and he needs to see an infectious disease doctor. He states the pain is in his right lower back and flank area, is made worsened by movement and standing. Nothing seems to make it any better, including the Percocet which he takes chronically at home. - Related Data Allergies/Adverse Reactions: paper tape Allergy (Uncoded 11/29/19 11:37) Home Medications: Percocet, Baclofen with ibuprofen, Tramdol. Insulin pens Past Medical History - General Information source: Patient - Social History Smoking Status: Former Smoker Chew tobacco use (# tins/day): No Frequency of alcohol use: None Drug Abuse: None Family History: Reviewed & Not Pertinent Patient has homicidal ideation: No - Past Medical History Cardiac Medical History: Reports: Hx Hypertension Denies: Hx Coronary Artery Disease, Hx Heart Attack Pulmonary Medical History: Denies: Hx Asthma, Hx Bronchitis, Hx COPD, Hx Pneumonia Neurological Medical History: Reports: Hx Migraine. Denies: Hx Cerebrovascular Accident, Hx Seizures Endocrine Medical History: Reports: Hx Diabetes Mellitus Type 2 Renal/ Medical History: Reports: Hx Kidney Stones. Denies: Hx Peritoneal Dialysis Musculoskeletal Medical History: Reports Hx Arthritis - bilat shoulders Past Surgical History: Reports: Hx Orthopedic Surgery - L knee, R leg amputation, bilateral shoulders - Immunizations Hx Diphtheria, Pertussis, Tetanus Vaccination: Yes Review of Systems - Review of Systems Constitutional: See HPI Genitourinary: See HPI Musculoskeletal: See HPI -: Yes All other systems reviewed and negative Physical Exam - Vital signs Vitals: Temp Pulse Resp BP Pulse Ox 99.2 F 113 H 18 144/89 H 100 01/13/20 21:03 01/13/20 21:03 01/13/20 21:03 01/13/20 21:03 01/13/20 21:03 - Notes Notes: This is a morbidly obese 44-year-old male who appears his stated age, no acute distress. Head is normocephalic and atraumatic, pupils are equal, reactive to light. Oral mucosa is moist. Uvula is midline. Neck supple no meningismus. Heart is regular rate and rhythm, lungs are clear to station bilaterally. Abdomen is obese, soft, nontender with normoactive bowel sounds. Examination of the spine is no midline tenderness or step-off. He has paraspinal musculature tenderness noted from L3-L5 on the right without associated spasm. No CVA tenderness noted. Patient has right leg amputated. Examination left lower extremity yields no cyanosis, clubbing, no posterior calf tenderness. Skin is warm and dry. Course - Re-evaluation Re-evalutation: 01/13/20 22:30 Patient presents to the emergency department for evaluation. He has a urinalysis which did reveal a nitrate positive specimen. Was sent for urine c ulture. He is given IV Rocephin. Given his age and comorbidities, I will order some basic blood work, including CBC, CMP, urine culture, blood cultures. He is given IV fluids, Toradol. He reports a history of kidney stones, but states they are in his kidney and not in his ureter. I will get a repeat CT scan to be sure this is not an infected stone. Patient is stable, we will continue to durga rendon. 01/14/20 00:58 Patient feeling improved after morphine. He does have a leukocytosis, and his f indings are concerning for pyelonephritis. I think it is more likely that he has some edema secondary to the renal stent, which was placed a few months ago. He has urological follow-up scheduled. I talked with the patient at length about his comorbidities. I explained to him that it would be reasonable to admit him for pyelonephritis, but he would likely need transferred given his stent in place and the fact that I do not have a urology service. The patient states he does not want to be transferred at this time. I talked at length with him about the diagnosis of pyelonephritis, the possible progression to bacteremia and sepsis, and complications thereof. He voiced understanding. He states he has had no vomiting, believes he can tolerate his pain at home, and would like to trial a course of outpatient antibiotics. I explained to him that he needs to call his urologist first thing tomorrow morning to try and be seen as soon as possible. We talked at length about worsening symptoms which should prompt him to return and he voiced understanding. He was given IV ceftriaxone here. I will send him out with a 2-week course of Bactrim, close follow-up. He is to return to the ED with worsening. - Vital Signs Vital signs: Temp Pulse Resp BP Pulse Ox 98.5 F 113 H 18 144/89 H 100 01/13/20 22:04 01/13/20 21:03 01/13/20 21:03 01/13/20 21:03 01/13/20 21:03 - Laboratory Result Diagrams: 01/13/20 22:51 01/13/20 22:51 Laboratory results interpreted by me: 01/13/20 01/13/20 01/13/20 22:00 22:51 22:51 WBC 13.1 H Hgb 10.6 L Hct 32.4 L MCV 72 L MCH 23.6 L RDW 16.8 H Plt Count 555 H Lymph % (Auto) 8.6 L Absolute Neuts (auto) 10.7 H Seg Neutrophils % 81.6 H Sodium 132.9 L Carbon Dioxide 18 L Glucose 331 H AST 15 L Alkaline Phosphatase 146 H Urine Protein 30 H Urine Glucose (UA) >=500 H Urine Blood MODERATE H Urine Nitrite POSITIVE H Ur Leukocyte Esterase LARGE H - Diagnostic Test Radiology reviewed: Image reviewed, Reports reviewed Radiology results interpreted by me: 01/14/20 00:59 Abdomen/Pelvis CT 01/13/20 22:27 IMPRESSION: 1. Right ureteral stent. Mild right hydronephrosis. Perinephric edema raises concern for pyelonephritis. Please correlate with urinalysis. 2. Bilateral renal calculi 3. 2 cm right adrenal nodule, likely adenoma. No follow-up imaging is recommended. 4. Previous gastric stapling and other chronic findings as described. Discharge - Discharge Clinical Impression: Pyelonephritis of right kidney Condition: Stable Disposition: HOME, SELF-CARE Instructions: Pyelonephritis (OM), Trimethoprim-Sulfa (OM) Additional Instructions: You have declined transfer at this time, and wished to do a trial of oral antibiotics at home. Please contact your urologist tomorrow to move up your appointment as soon as possible. If you develop vomiting, worsened pain, continued fevers beyond 24 hours, or any other new or concerning symptoms of any sort, please return immediately to the emergency department for evaluation. Prescriptions: Sulfamethoxazole/Trimethoprim [Bactrim Ds Tablet] 1 each PO BID #28 tablet Referrals: DENVER GOODRICH PA-C [Primary Care Provider] - Follow up as needed
[2020-01-13] MEDS ORDERED: CEFTRIAXONE 1 GM/D5W RTU 1 GM/50 ML RTUPB IV ONE (22:45)
[2020-01-13 23:06] LABS: ABSOLUTE BASOPHILS # (AUTO) 0.1 10^3/uL (0.0-0.2); ABSOLUTE EOSINOPHILS # (AUTO) 0.2 10^3/uL (0.0-0.6); ABSOLUTE LYMPHOCYTES (AUTO) 1.1 10^3/uL (0.5-4.7); ABSOLUTE MONOCYTES (AUTO) 0.9 10^3/uL (0.1-1.4); ABSOLUTE NEUT (AUTO) 10.7 10^3/uL (1.7-8.2); EOSINOPHILS % (AUTO) 1.8 % (0-6); HEMATOCRIT 32.4 % (37.9-51.0); HEMOGLOBIN 10.6 g/dL (13.5-17.0); LYMPHOCYTES % (AUTO) 8.6 % (13-45); MEAN CORPUSCULAR HEMOGLOBIN 23.6 pg (27.0-33.4); MEAN CORPUSCULAR HGB CONC 32.7 g/dL (32.0-36.0); MEAN CORPUSCULAR VOLUME 72 fl (80-97); PLATELET COUNT 555 10^3/uL (150-450); RED BLOOD COUNT 4.49 10^6/uL (4.35-5.55); RED CELL DISTRIBUTION WIDTH 16.8 % (11.5-14.0); SEGMENTED NEUTROPHILS % (AUTO) 81.6 % (42-78); TOTAL CELLS COUNTED % (AUTO) 100 %; WHITE BLOOD COUNT 13.1 10^3/uL (4.0-10.5)
[2020-01-13 23:23] LABS: ALBUMIN 3.9 g/dL (3.5-5.0); ALKALINE PHOSPHATASE 146 U/L (38-126); ANION GAP 11 (5-19); ASPARTATE AMINO TRANSFERASE 15 U/L (17-59); BILIRUBIN,DIRECT 0.1 mg/dL (0.0-0.4); BILIRUBIN,TOTAL 0.6 mg/dL (0.2-1.3); BLOOD UREA NITROGEN 14 mg/dL (7-20); CARBON DIOXIDE 18 mmol/L (22-30); CHLORIDE 104 mmol/L (98-107); GLUCOSE 331 mg/dL (75-110); POTASSIUM 4.2 mmol/L (3.6-5.0); TOTAL PROTEIN 7.4 g/dL (6.3-8.2)
[2020-01-14] MEDS ORDERED: MORPHINE SULFATE 10 MG/ML INJ IV ONE
--- NOTE | 2020-01-14 00:30 | RADIOLOGY REPORT (SQ) ---
EXAM DESCRIPTION: [facility]: CT ABDOMEN PELVIS WITHOUT IV CONTRAST CLINICAL HISTORY: 44 years Male; right flank pain, eval for stone; TECHNIQUE: CT of the abdomen and pelvis without contrast. All CT scans at this facility use dose modulation, iterative reconstruction, and/or weight based dosing when appropriate to reduce radiation dose to as low as reasonably achievable. COMPARISON: None. FINDINGS: Abdomen: Stomach: Previous gastric stapling. No distention or adjacent edema. Liver:No focal lesions. No intrahepatic ductal distention. Gallbladder:Nondistended Pancreas:Within normal limits Spleen:Within normal limits Right kidney: Ureteral stent is in place. Mild hydronephrosis. Several calculi in the lower pole up to 7 mm diameter. No ureteral distention. Mild perinephric edema and general renal enlargement. Left kidney: 6 mm calculus. No hydronephrosis. No ureteral calculi. Adrenal glands: 2 cm right adrenal nodule with density minus 5HU. Normal left adrenal Vascular structures: No aortic aneurysm. IVC filter is noted, with flex protruding through the wall. Upper anterior abdominal wall mesh is noted. No hernia. Pelvis: Small bowel:No significant distention. Appendix:Within normal limits Colon:No distention or acute pericolonic edema. No free intraperitoneal fluid or air. Bones: Right femur is absent. There is extensive heterotopic bone formation in the region of the right hip. Left hip is normal. No acute bone findings. Bladder: Nondistended. No adjacent edema. Prostate: Calcifications, but otherwise unremarkable. Note that evaluation of the bowel and solid organs is somewhat limited due to lack of intravenous and oral contrast. IMPRESSION: 1. Right ureteral stent. Mild right hydronephrosis. Perinephric edema raises concern for pyelonephritis. Please correlate with urinalysis. 2. Bilateral renal calculi 3. 2 cm right adrenal nodule, likely adenoma. No follow-up imaging is recommended. 4. Previous gastric stapling and other chronic findings as described.
[2020-01-14 01:18] VITALS: BP 143/79
== END 2020-01-14 02:00 | disposition home or self-care (01) ==
LOC: ER 20:59
DX: N13.6 Pyonephrosis (principal); R50.9 Fever, unspecified; R10.9 Unspecified abdominal pain; R35.0 Frequency of micturition; M54.5 Low back pain; E27.9 Disorder of adrenal gland, unspecified; I10 Essential (primary) hypertension; E11.9 Type 2 diabetes mellitus without complications; E66.01 Morbid (severe) obesity due to excess calories; Z79.4 Long term (current) use of insulin; Z79.891 Long term (current) use of opiate analgesic; Z79.899 Other long term (current) drug therapy; Z96.0 Presence of urogenital implants; Z91.048 Other nonmedicinal substance allergy status
CPT/HCPCS: 99284; 96361; 96375; 96365; 36415; 87040; 87086; 85025; 87088; 80053; 81001; 87186; 74176; J1885; J2270; J7030 ×2; J0696

== ENCOUNTER 2020-06-06 09:44 | Day surgery (SDC) | payer OTHER, MEDICARE ==
[2020-06-01 11:50] LABS: APPEARANCE,URINE CLOUDY; BILIRUBIN,URINE NEGATIVE (NEGATIVE); COLOR,URINE YELLOW; GLUCOSE, URINE NEGATIVE (NEGATIVE); KETONES,URINE NEGATIVE (NEGATIVE); LEUKOCYTE ESTERASE,URINE LARGE (NEGATIVE); NITRITE,URINE POSITIVE (NEGATIVE); PROTEIN,URINE 30 mg/dL (NEGATIVE); URINE SPECIFIC GRAVITY 1.014; UROBILINOGEN,URINE NEGATIVE mg/dL (<2.0)
[2020-06-01 11:50] LABS: HEMATOCRIT 34.6 % (37.9-51.0); MEAN CORPUSCULAR HEMOGLOBIN 22.3 pg (27.0-33.4); MEAN CORPUSCULAR HGB CONC 31.9 g/dL (32.0-36.0); MEAN CORPUSCULAR VOLUME 70 fl (80-97); PLATELET COUNT 337 10^3/uL (150-450); RED BLOOD COUNT 4.95 10^6/uL (4.35-5.55); RED CELL DISTRIBUTION WIDTH 18.1 % (11.5-14.0); WHITE BLOOD COUNT 7.1 10^3/uL (4.0-10.5)
[2020-06-01 12:14] LABS: ANION GAP 9 (5-19); BLOOD UREA NITROGEN 15 mg/dL (7-20); CALCIUM 9.2 mg/dL (8.4-10.2); CARBON DIOXIDE 24 mmol/L (22-30); CHLORIDE 108 mmol/L (98-107); GLUCOSE 85 mg/dL (75-110); POTASSIUM 4.1 mmol/L (3.6-5.0)
[~2020-06-06 09:44] MED LIST changes: +CEFAZOLIN 2 GM/D5W RTU 2 GM/50 ML RTUPB IV PRN; -CEFAZOLIN SODIUM 2 GM in DEXTROSE 5%-WATER 100 ML IV PRN; +FENTANYL CITRATE INJ/PF 100 MCG/2 ML AMPUL ONE; +LIDOCAINE 0.5% INJ-PF (5 MG/ML) 50 ML SDV SUBCUT PRN; +MIDAZOLAM 2 MG/2 ML INJ ONE; +ONDANSETRON HCL INJ/PF 4 MG/2 ML SDV ONE; +PROPOFOL INJ 200 MG/20 ML VIAL IV ONE
[2020-06-06] MEDS ORDERED: CEFAZOLIN 2 GM/D5W RTU 2 GM/50 ML RTUPB IV ONE (10:09)
[2020-06-06] MEDS ORDERED: OXYCODONE-ACETAMINOPHEN 5-325 MG TABLET ONE (11:08)
[2020-06-06] MEDS: OXYCODONE HCL IR 5 MG TABLET ONE ×2 (11:10→13:40)
[2020-06-06] MEDS ORDERED: LIDOCAINE 1% INJ-PF (10 MG/ML) 30 ML SDV ONE (12:08)
[2020-06-06] MEDS ORDERED: FENTANYL CITRATE INJ/PF 100 MCG/2 ML AMPUL IV PRN ×3 (12:27)
[2020-06-06] MEDS ORDERED: MORPHINE SULFATE 10 MG/ML INJ IV PRN (12:27)
[2020-06-06] MEDS ORDERED: DIPHENHYDRAMINE HCL 50 MG/ML VIAL IV PRN (12:27)
[2020-06-06] MEDS ORDERED: ONDANSETRON HCL INJ/PF 4 MG/2 ML SDV IV PRN (12:27)
[2020-06-06] MEDS ORDERED: MEPERIDINE HCL/PF INJ 25 MG/1 ML DISP.SYRIN IV PRN (12:27)
[2020-06-06] MEDS ORDERED: PROMETHAZINE HCL INJ 25 MG/1 ML VIAL IV PRN ×2 (12:27)
--- NOTE | 2020-06-06 12:40 | Operative Report ---
Operative Report DATE OF SURGERY: 06/06/20 PREOPERATIVE DIAGNOSIS: Left carpal tunnel syndrome POSTOPERATIVE DIAGNOSIS: Same OPERATION: Left endoscopic carpal tunnel release SURGEON: JANET HERNANDEZ ANESTHESIA: LMAC COMPLICATIONS: None ESTIMATED BLOOD LOSS: Minimal PROCEDURE: Indication for above procedure: 44-year-old male with longstanding history of numbness in his left hand. Patient had electrodiagnostic testing consistent with advanced carpal tunnel syndrome. Attempted conservative measures at resolution of patient's symptoms at that point decision was made to proceed with operative intervention. Risk and benefits were explained patient verbalized understanding consented for surgery procedure. Procedure In Detail: Patient was seen and evaluated in the preoperative holding area. The LEFT upper extremity was initialized and marked. Patient received Ancef IV for bacterial prophylaxis. Patient was taken back to the operative room where transferred operative table. Patient was then placed under MAC anesthesia. Once adequately anesthetized, a nonsterile tourniquet was placed on the upper extremity. A surgical team debriefing was performed ensuring all instrumentation was available, the surgical procedure was discussed with possible concerns reviewed. Skin was prepped with alcohol and 10cc of 1% lidocaine without epinephrine was injected locally and w/in carpal canal. The upper extremity was prepped with chlorhexidine and alcohol and draped in a sterile fashion. A timeout was done identifying correct patient, procedure and extremity everyone in attendance agree with this and verbalized no concerns.The extremity was then exsanguinated the tourniquet was inflated to 250 mmHg. A transverse skin incision was made just proximal to the wrist flexion crease ulnar to the palmaris longus. Blunt dissection was performed down to the palmaris longus tendon which was retracted radially. Deep to the palmaris l ongus tendon was the volar carpal ligament this was incised identifying the median nerve deep. With the use of a [place] elevator any soft tissue/synovium was freed from the undersurface of the transverse carpal ligament. The hook of hamate was identified ulnarly. The ConMed cannulas were then introduced beginning with #1 progressing to a #3 gently dilating the carpal canal. I then introduced the scope within the cannula and identified transverse carpal ligament ensuring the median nerve was not visualized within the cannula. I triangulated distally with a 25-gauge needle identifying the distal aspect of the transverse carpal ligament, to ensure protection of the superficial palmar arch. The arthroscopic knife was used to incise the transverse carpal ligament under direct visualization with the arthroscopic camera. Any excess transverse fibers that remained after the first past were carefully released with a repeat pass. The median nerve was then directly visualized radially without disruption. Once this was completed I placed the #3 dilator and assured I got complete release of the transverse carpal ligament without residual compression. The median nerve was directly visualized and free of any overlying compression. I then turned my attention to release of the volar antebrachial fascia proximally. Once again a [place] was used to open the wound and I proceeded with cannula #1 to #3. The arthroscope was introduced into the cannula and under direct visualization the volar antebrachial fascia was released. Once this was complete I copiusly irrigated the wound with normal saline. The skin incision was closed with 4-0 Monocryl subcutaneous and a running subcuticular 4-0 Monocryl. This was reinforced with Dermabond and Steri-Strips. Sterile, 4 x 4's and a Kel bandage was placed loosely. Sponge counts, instrument counts and needle counts were correct. The was no intraoperative complications patient tolerated the procedure well and was stable to PACU.
--- NOTE | 2020-06-06 12:40 | Discharge Summary ---
Discharge Summary (SDC) - Discharge Final Diagnosis: Left carpal tunnel syndrome Date of Surgery: 06/06/20 Discharge Date: 06/06/20 Condition: Good Treatment or Instructions: Schedule Follow Up w/ Dr. Reagan Lora @ [facility] for Surgery to be seen in 10-14 days or as scheduled Page: [place]: [place]: May remove dressing on postop day #3, keep incision covered and dry. Ice and elevate May begin finger range of motion attempting to make full fist. Stool softener of choice when on pain medication. USE OF [id number] IBUPROFEN: Ibuprofen (Advil, Nuprin, Medipren, Motrin IB) is a medication for fever and pain control. In addition, it has anti- inflammatory effects which may be beneficial, especially in the treatment of injuries. It's best to take ibuprofen with food. Persons with ulcer disease or allergy to aspirin should notify their physician of this before taking ibuprofen. Ibuprofen can be given every four to six hours, for a total of four doses daily. Age Pain or fever dose Antiinflammatory dose 6-8 yr 200 mg (1 tab) 200 mg (1 tab) 9-11 yr 200 mg (1 tab) 200-400 mg (1-2 tab) 11-14 yr 200-400 mg (1-2 tab) 400 mg (2 tab) 15-adult 400 mg (2 tab) 600 mg (3 tab) ORAL NARCOTIC MEDICATION: You have been given a prescription for pain control. This medication is a narcotic. It's best taken with food, as nausea can result if taken on an empty stomach. Don't operate machinery or drive within six hours of taking this medication. Do not combine this medicine with alcohol, or with any medication which can cause sedation (such as cold tablets or sleeping pills) unless you get permission from the physician. Narcotics tend to cause constipation. If possible, drink plenty of fluids and eat a diet high in fiber and fruits. Please be aware that prescription narcotics also have the potential for abuse. People become addicted to these medications because of the general sense of wellbeing that they induce. This feeling along with a significant reduction in tension, anxiety, and aggression provides a stimulating seductive quality to these drugs. Once your pain is under control, we encourage you to discard your unused narcotics. Prescriptions: Oxycodone HCl [Oxaydo] 5 mg PO Q6 PRN #12 tablet.orl PRN Reason: Referrals: DENVER GOODRICH PA-C [Primary Care Provider] - Discharge Diet: As Tolerated Respiratory Treatments at Home: Deep Breathing/Coughing Discharge Activity: No Lifting Over 10 Pounds, No Lifting/Push/Pulling Report the Following to Your Physician Immediately: Fever over 101 Degrees, Unusual Bleeding, Redness, Swelling, Warmth, Increased Soreness
[2020-06-06] MEDS ORDERED: OXYCODONE HCL IR 5 MG TABLET ONE (13:45)
[2020-06-06 15:19] VITALS: BP 124/80
== END 2020-06-06 15:17 | disposition home or self-care (01) ==
LOC: OROUT 09:44
PROVIDERS: ATTEND Orthopaedic Surgery
DX: G56.02 Carpal tunnel syndrome, left upper limb (principal); I10 Essential (primary) hypertension; E11.40 Type 2 diabetes mellitus with diabetic neuropathy, unspecified; I25.10 Atherosclerotic heart disease of native coronary artery without angina pectoris; G47.33 Obstructive sleep apnea (adult) (pediatric); M19.90 Unspecified osteoarthritis, unspecified site; Z79.899 Other long term (current) drug therapy; Z03.818 Encounter for observation for suspected exposure to other biological agents ruled out; Z79.4 Long term (current) use of insulin
CPT/HCPCS: 36415; 82962; 85027; 87635; 80048; 81001; 83036; 01810; 29848; J2250; J3010; J3490; J2405; J2704; J0690; C9803; 1810

== ENCOUNTER 2020-06-09 23:20 | Emergency (ER) | payer MEDICARE, OTHER ==
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
[2020-06-10 00:01] LABS: ABSOLUTE BASOPHILS # (AUTO) 0.1 10^3/uL (0.0-0.2); ABSOLUTE EOSINOPHILS # (AUTO) 0.2 10^3/uL (0.0-0.6); ABSOLUTE LYMPHOCYTES (AUTO) 2.2 10^3/uL (0.5-4.7); ABSOLUTE MONOCYTES (AUTO) 0.7 10^3/uL (0.1-1.4); ABSOLUTE NEUT (AUTO) 6.5 10^3/uL (1.7-8.2); BASOPHILS % (AUTO) 0.8 % (0-2); HEMATOCRIT 37.2 % (37.9-51.0); LYMPHOCYTES % (AUTO) 22.6 % (13-45); MEAN CORPUSCULAR HEMOGLOBIN 22.7 pg (27.0-33.4); MEAN CORPUSCULAR HGB CONC 32.4 g/dL (32.0-36.0); MEAN CORPUSCULAR VOLUME 70 fl (80-97); PLATELET COUNT 421 10^3/uL (150-450); RED CELL DISTRIBUTION WIDTH 17.7 % (11.5-14.0); SEGMENTED NEUTROPHILS % (AUTO) 67.6 % (42-78); TOTAL CELLS COUNTED % (AUTO) 100 %; WHITE BLOOD COUNT 9.6 10^3/uL (4.0-10.5)
[2020-06-10 00:12] LABS: ALBUMIN 4.3 g/dL (3.5-5.0); ALKALINE PHOSPHATASE 126 U/L (38-126); ANION GAP 17 (5-19); ASPARTATE AMINO TRANSFERASE 14 U/L (17-59); BILIRUBIN,DIRECT 0.3 mg/dL (0.0-0.4); BILIRUBIN,TOTAL 0.3 mg/dL (0.2-1.3); BLOOD UREA NITROGEN 8 mg/dL (7-20); CALCIUM 9.6 mg/dL (8.4-10.2); CARBON DIOXIDE 16 mmol/L (22-30); CHLORIDE 110 mmol/L (98-107); GLUCOSE 138 mg/dL (75-110); PHOSPHORUS 3.8 mg/dL (2.5-4.5); POTASSIUM 3.4 mmol/L (3.6-5.0); TOTAL PROTEIN 7.8 g/dL (6.3-8.2)
[2020-06-10] MEDS ORDERED: DIPHENHYDRAMINE HCL 50 MG/ML VIAL IM ONE (00:56)
[2020-06-10] MEDS ORDERED: HALOPERIDOL LACTATE INJ 5 MG/1 ML VIAL IM ONE (00:56)
[2020-06-10] MEDS ORDERED: LORAZEPAM INJ 2 MG/1 ML VIAL IM ONE (00:57)
[2020-06-10] MEDS ORDERED: RINGERS SOLUTION,LACTATED 1,000 ML IV ONE ×2 (01:06→01:10)
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
[2020-06-10 03:49] LABS: APPEARANCE,URINE SLIGHTLY-CLOUDY; BILIRUBIN,URINE NEGATIVE (NEGATIVE); COLOR,URINE YELLOW; GLUCOSE, URINE NEGATIVE (NEGATIVE); KETONES,URINE NEGATIVE (NEGATIVE); LEUKOCYTE ESTERASE,URINE LARGE (NEGATIVE); NITRITE,URINE POSITIVE (NEGATIVE); PROTEIN,URINE 30 mg/dL (NEGATIVE); URINE SPECIFIC GRAVITY 1.008; UROBILINOGEN,URINE NEGATIVE mg/dL (<2.0)
[2020-06-10 04:01] LABS: URINE AMPHETAMINES SCREEN NEGATIVE; URINE BARBITURATES SCREEN NEGATIVE; URINE BENZODIAZEPINES SCREEN NEGATIVE; URINE COCAINE SCREEN NEGATIVE; URINE MARIJUANA (THC) SCREEN NEGATIVE; URINE METHADONE SCREEN NEGATIVE; URINE PHENCYCLIDINE SCREEN NEGATIVE
[2020-06-10] MEDS ORDERED: CEPHALEXIN 500 MG CAPSULE PO ONE (04:06)
[2020-06-10 04:18] VITALS: BP 158/81
== END 2020-06-10 04:18 | disposition home or self-care (01) ==
LOC: ER 23:20
DX: N39.0 Urinary tract infection, site not specified (principal); R41.0 Disorientation, unspecified; R25.1 Tremor, unspecified; I10 Essential (primary) hypertension; E11.9 Type 2 diabetes mellitus without complications; Z89.611 Acquired absence of right leg above knee; Z79.4 Long term (current) use of insulin
CPT/HCPCS: 99284; 96360; 96361; 36415; 87086; 82962; 80307 ×2; 83735; 84100; 85025; 87088; 80053; 81001; A9270; J7120; 87186

== ENCOUNTER 2020-09-05 06:12 | Day surgery (SDC) | payer OTHER, MEDICARE ==
--- NOTE | 2020-08-30 10:11 | EKG REPORT ---
SEVERITY:- ABNORMAL ECG - SINUS TACHYCARDIA LEFT VENTRICULAR HYPERTROPHY : Confirmed by: Jimmie Palomo MD 30-Aug-2020 10:10:30
--- NOTE | 2020-08-30 10:35 | RADIOLOGY REPORT (SQ) ---
EXAM DESCRIPTION: CHEST 2 VIEWS IMAGES COMPLETED DATE/TIME: 08/30/2020 10:19 am REASON FOR STUDY: PRE OP TESTING COMPARISON: 10/29/2019 EXAM PARAMETERS: NUMBER OF VIEWS: two views TECHNIQUE: Digital Frontal and Lateral radiographic views of the chest acquired. RADIATION DOSE: NA LIMITATIONS: none FINDINGS: LUNGS AND PLEURA: No opacities, masses or pneumothorax. No pleural effusion. MEDIASTINUM AND HILAR STRUCTURES: No masses or contour abnormalities. HEART AND VASCULAR STRUCTURES: Heart normal size. No evidence for failure. BONES: Prior total left shoulder arthroplasty. HARDWARE: None in the chest. OTHER: No other significant finding. IMPRESSION: NO ACUTE RADIOGRAPHIC FINDING IN THE CHEST. TECHNICAL DOCUMENTATION: JOB ID: [id number] [employer]- All Rights Reserved Reading location - IP/workstation name: [email or web address]
[2020-08-30 11:07] LABS: HEMATOCRIT 35.2 % (37.9-51.0); HEMOGLOBIN 11.2 g/dL (13.5-17.0); MEAN CORPUSCULAR VOLUME 72 fl (80-97); PLATELET COUNT 336 10^3/uL (150-450); RED BLOOD COUNT 4.88 10^6/uL (4.35-5.55); RED CELL DISTRIBUTION WIDTH 16.7 % (11.5-14.0); WHITE BLOOD COUNT 12.3 10^3/uL (4.0-10.5)
[2020-08-30 11:24] LABS: APPEARANCE,URINE HAZY; BILIRUBIN,URINE NEGATIVE (NEGATIVE); COLOR,URINE YELLOW; KETONES,URINE NEGATIVE (NEGATIVE); LEUKOCYTE ESTERASE,URINE LARGE (NEGATIVE); NITRITE,URINE POSITIVE (NEGATIVE); PROTEIN,URINE 30 mg/dL (NEGATIVE); URINE SPECIFIC GRAVITY 1.005; UROBILINOGEN,URINE NEGATIVE mg/dL (<2.0)
[2020-08-30 11:31] LABS: ANION GAP 11 (5-19); BLOOD UREA NITROGEN 13 mg/dL (7-20); CALCIUM 9.1 mg/dL (8.4-10.2); CARBON DIOXIDE 20 mmol/L (22-30); CHLORIDE 107 mmol/L (98-107); GLUCOSE 297 mg/dL (75-110); POTASSIUM 4.1 mmol/L (3.6-5.0)
[2020-08-30 11:33] LABS: GLUCOSE, URINE >=1000 mg/dL (NEGATIVE)
[~2020-09-05 06:12] MED LIST changes: +CEFAZOLIN SODIUM 2 GM in DEXTROSE 5%-WATER 100 ML IV PRN; -FENTANYL CITRATE INJ/PF 100 MCG/2 ML AMPUL ONE; -MIDAZOLAM 2 MG/2 ML INJ ONE; -ONDANSETRON HCL INJ/PF 4 MG/2 ML SDV ONE; -PROPOFOL INJ 200 MG/20 ML VIAL IV ONE
[2020-09-05] MEDS ORDERED: CEFAZOLIN 2 GM/D5W RTU 2 GM/50 ML RTUPB IV ONE (06:24)
[2020-09-05] MEDS ORDERED: HYDROMORPHONE HCL INJ/PF 2 MG/ML AMPULE ONE (06:36)
[2020-09-05] MEDS ORDERED: FENTANYL CITRATE INJ/PF 100 MCG/2 ML AMPUL ONE (06:36)
[2020-09-05] MEDS ORDERED: EPHEDRINE SULFATE INJ 50 MG/1 ML AMPULE ONE (06:37)
[2020-09-05] MEDS ORDERED: SUGAMMADEX SODIUM 200 MG/2 ML SDV IV ONE (06:37)
[2020-09-05] MEDS ORDERED: MIDAZOLAM 2 MG/2 ML INJ ONE (06:37)
[2020-09-05] MEDS ORDERED: PROPOFOL INJ 200 MG/20 ML VIAL IV ONE (06:37)
[2020-09-05] MEDS ORDERED: LIDOCAINE 2% INJ (20 MG/ML) 20 ML MDV ONE (06:39)
[2020-09-05] MEDS ORDERED: EPINEPHRINE INJ/PF 1 MG/1 ML AMPULE ONE (07:06)
[2020-09-05] MEDS ORDERED: ROPIVACAINE HCL 0.5% INJ/PF (5 MG/1 ML) 30 ML SDV ONE (07:16)
[2020-09-05] MEDS ORDERED: GLYCOPYRROLATE 1 MG/5 ML VIAL ONE (07:52)
[2020-09-05] MEDS ORDERED: DEXAMETHASONE SOD PHOSPHATE INJ 4 MG/1 ML VIAL ONE (07:52)
[2020-09-05] MEDS ORDERED: ONDANSETRON HCL INJ/PF 4 MG/2 ML SDV ONE (07:52)
[2020-09-05] MEDS ORDERED: METOPROLOL TARTRATE PF/INJ 5 MG/5 ML SDV IV ONE (07:52)
[2020-09-05] MEDS ORDERED: SUCCINYLCHOLINE CHLORIDE INJ 200 MG/10 ML VIAL ONE (07:52)
[2020-09-05] MEDS ORDERED: METOCLOPRAMIDE HCL INJ/PF 10 MG/2 ML SDV ONE (07:52)
[2020-09-05] MEDS ORDERED: ROCURONIUM BROMIDE INJ 50 MG/5 ML VIAL IV ONE (07:52)
[2020-09-05] MEDS ORDERED: KETOROLAC TROMETHAMINE 60 MG/2 ML SDV ONE (07:52)
[2020-09-05] MEDS ORDERED: NEOSTIGMINE METHYLSULFATE 10 MG/10 ML VIAL ONE (07:52)
[2020-09-05] MEDS ORDERED: OXYCODONE-ACETAMINOPHEN 5-325 MG TABLET PO PRN ×2 (09:00)
[2020-09-05] MEDS ORDERED: FENTANYL CITRATE INJ/PF 100 MCG/2 ML AMPUL IV PRN ×3 (09:00)
[2020-09-05] MEDS ORDERED: DIPHENHYDRAMINE HCL 50 MG/ML VIAL IV PRN (09:00)
[2020-09-05] MEDS ORDERED: MEPERIDINE HCL/PF INJ 25 MG/1 ML DISP.SYRIN IV PRN (09:00)
[2020-09-05] MEDS ORDERED: MORPHINE SULFATE 10 MG/ML INJ IV PRN (09:00)
[2020-09-05] MEDS ORDERED: PROMETHAZINE HCL INJ 25 MG/1 ML VIAL IV PRN ×2 (09:00)
--- NOTE | 2020-09-05 11:57 | Discharge Summary ---
Discharge Summary (SDC) - Discharge Final Diagnosis: Rotator Cuff Tear Left Shoulder Date of Surgery: 09/05/20 Discharge Date: 09/05/20 Condition: Good Treatment or Instructions: Schedule Follow Up w/ Dr. Reagan Lora @ [facility] for Surgery to be seen in 10-14 days or as scheduled [place]: [place]: [place]: May remove dressing on postop day #3, keep incision covered and dry. Cryocuff to shoulder May begin pendulum exercises along w/ hand, wrist and elbow range of motion 4x per day or as tolerated. May remove sling for hygiene purposes otherwise continue it at all times. Stool softener of choice when on pain medication. USE OF [id number]-PPL-[id number] IBUPROFEN: Ibuprofen (Advil, Nuprin, Medipren, Motrin IB) is a medication for fever and pain control. In addition, it has anti- inflammatory effects which may be beneficial, especially in the treatment of injuries. It's best to take ibuprofen with food. Persons with ulcer disease or allergy to aspirin should notify their physician of this before taking ibuprofen. Ibuprofen can be given every four to six hours, for a total of four doses daily. Age Pain or fever dose Antiinflammatory dose 6-8 yr 200 mg (1 tab) 200 mg (1 tab) 9-11 yr 200 mg (1 tab) 200-400 mg (1-2 tab) 11-14 yr 200-400 mg (1-2 tab) 400 mg (2 tab) 15-adult 400 mg (2 tab) 600 mg (3 tab) ORAL NARCOTIC MEDICATION: You have been given a prescription for pain control. This medication is a narcotic. It's best taken with food, as nausea can result if taken on an empty stomach. Don't operate machinery or drive within six hours of taking this medica tion. Do not combine this medicine with alcohol, or with any medication which can cause sedation (such as cold tablets or sleeping pills) unless you get permission from the physician. Narcotics tend to cause constipation. If possible, drink plenty of fluids and eat a diet high in fiber and fruits. Please be aware that prescription narcotics also have the potential for abuse. People become addicted to these medications because of the general sense of wellbeing that they induce. This feeling along with a significant reduction in tension, anxiety, and aggression provides a stimulating seductive quality to these drugs. Once your pain is under control, we encourage you to discard your unused narcotics. Referrals: DENVER GOODRICH PA-C [Primary Care Provider] - Discharge Diet: As Tolerated Respiratory Treatments at Home: Deep Breathing/Coughing Discharge Activity: No Lifting Over 10 Pounds, No Lifting/Push/Pulling Report the Following to Your Physician Immediately: Fever over 101 Degrees, Unusual Bleeding, Redness, Swelling, Warmth, Increased Soreness
--- NOTE | 2020-09-05 12:08 | Operative Report ---
Operative Report DATE OF SURGERY: 09/05/20 PREOPERATIVE DIAGNOSIS: Left shoulder irreparable rotator cuff tear status post humeral surfacing POSTOPERATIVE DIAGNOSIS: Same plus heterotopic ossification plus adhesive capsulitis OPERATION: left shoulder arthroscopy with rotator cuff repair/superior capsular reconstruction, lysis of adhesions with capsular release, excision of heterotopic ossification, removal of loose bodies SURGEON: JANET HERNANDEZ 1ST BIRTH CERTIFICATE CLERK: RONALDO CORTES - Carpet Cleaner required for shoulder manipulation, retractor placement and graft preparation. ANESTHESIA: GA COMPLICATIONS: None ESTIMATED BLOOD LOSS: Minimal PROCEDURE: Indication for above procedure: 45-year-old male with longstanding history of left shoulder discomfort. Patient had prior rotator cuff repair and ultimately humeral resurfacing however patient continues to have discomfort with limited mobility and pain with attempted m otion. We have attempted conservative measures including physical therapy and injections without resolution of his symptoms. Patient did have prior CT arthrogram which demonstrated a well-seated prosthesis with rotator cuff insufficiency. We discussed treatment options including rotator cuff reconstruction utilizing autograft versus reverse total shoulder arthroplasty however given patient's young age decision was made to attempt rotator cuff reconstruction. Procedure In Detail: Patient was seen and evaluated in the preoperative holding area. The LEFT upper extremity was initialized and marked. Patient received 2g of Ancef IV for bacterial prophylaxis. Patient was taken back to the operative room where transferred to the operative table and placed under general anesthesia. Once th ey were adequately anesthetized patient placed in the beachchair position. Cervical spine was placed in neutral position all bony prominences were padded including nonoperative upper extremity and bilateral lower extremity. A surgical team debriefing was performed ensuring all instrumentation was available, the surgical procedure was discussed with possible concerns reviewed. The upper extremity was prepped with ChloraPrep draped in a sterile fashion. A timeout was done identifying correct patient, procedure and extremity everyone in attendance agree with this and verbalized no concerns. Posterior portal was established. Via triangulation a anterior portal was established. There was significant scarring. Partial capsulectomy was performed removing the intervening adhesive capsule in order to achieve adequate range of motion. Diagnostic arthroscopy demonstrated significant heterotopic ossification noted posteriorly which was impinging on the humerus and decreasing access to the glenohumeral joint in order to complete operative procedure. Thus with a arthroscopic bur a large portion of the heterotopic ossification was excised and removed. Once the glenohumeral joint was entered partial debridement was performed. There is no evidence of prosthetic loosening. There was maintained cartilage of the glenoid. A loose body was noted anteriorly which was then removed. A prior biceps tenotomy and/or tenodesis was performed. There is no evidence of remanent biceps. There was full-thickness rotator cuff tear with very little remanent of the supraspinatus with heterotopic application of the muscular portion of the infraspinatus as noted above. Once adequate exposure to the subacromial space and glenoid was obtained after heterotopic ossification excision decision was made to proceed with a superior capsular reconstruction. The glenoid face was debrided anteriorly and posteriorly in order to obtain access to the glenoid for implantation of the suture tack anchors. An additional portal was obtained adjacent to the scapular spine and a suture tack was placed posteriorly. Via an additional anterior portal a second suture tack was placed. The graft site was then determined measuring a 30 x 20 5 x 15 x 15. On the back table the Dermal allograft was prepared. The greater tuberosity was debrided down to cancellus bone. 2 additional portals were established along the lateral acromion and 3.75 swivel lock anchors were placed adjacent to the humeral prosthesis at the insertion of the rotator cuff. The FiberWire from the suture tacks and swivel lock anchors was then shuttled through the lateral portal through a passport cannula. Mattress sutures were then placed through the dermal allograft. 2 of the 4 sutures from the suture tack anchors were then secured and via tension slide technique the dermal allograft was shuttled through the passport cannula firmly down to the glenoid. The sutures were then cut. At this point 1 anterior and 1 posterior suture tape was then shuttled through the passport cannula and placed through a swivel lock anchor. The lateral aspect of the humerus was exposed and the swivel lock anchor implanted while maintaining approximately 45 degrees of shoulder abduction and neutral external rotation. The remaining anterior and posterior suture tape was then loaded on an additional swivel lock anchor and implanted along the posterior lateral aspect of the humerus bringing the graft firmly down to bone. There was good stability of the graft with range of motion. Unfortunately posterior repair to the infraspinatus was not feasible given the heterotopic bone. This did provide adequate coverage of the humeral head and decrease patient's superior humeral migration. Skin incision was then closed with interrupted 3-0 nylon suture. Soft dressing was placed. Patient was placed in a abduction sling. Sponge counts, instrument counts, needle counts were correct. Patient was then awoken from anesthesia. Transferred from the operating room table to the operating room stretcher. There was no intraoperative complications patient tolerated procedure well stable to PACU. Postop plan: Patient will follow in the office in 2 weeks for recheck. We will begin physical therapy 6 weeks postop fully as per massive rotator cuff repair protocol
[2020-09-05] MEDS ORDERED: ONDANSETRON HCL 8 MG TABLET PO PRN (12:38)
[2020-09-05] MEDS ORDERED: HYDROCODONE/ACETAMINOPHEN 5-325 MG TABLET PO PRN (12:38)
[2020-09-05] MEDS ORDERED: ACETAMINOPHEN 1,000 MG/100 ML RTUPB IV ONE (12:53)
[2020-09-05] MEDS: HYDROMORPHONE HCL INJ/PF 2 MG/ML AMPULE ONE ×3 (12:55→13:05)
[2020-09-05] MEDS ORDERED: HYDROCODONE/ACETAMINOPHEN 5-325 MG TABLET ONE (13:35)
[2020-09-05 15:56] VITALS: BP 151/97
== END 2020-09-05 15:00 | disposition home or self-care (01) ==
LOC: OROUT 06:12
PROVIDERS: ATTEND Orthopaedic Surgery
DX: M75.122 Complete rotator cuff tear or rupture of left shoulder, not specified as traumatic (principal); M75.02 Adhesive capsulitis of left shoulder; Q74.0 Other congenital malformations of upper limb(s), including shoulder girdle; Z01.812 Encounter for preprocedural laboratory examination; Z20.828 Contact with and (suspected) exposure to other viral communicable diseases; K21.9 Gastro-esophageal reflux disease without esophagitis; Z79.899 Other long term (current) drug therapy; Z79.4 Long term (current) use of insulin; E11.9 Type 2 diabetes mellitus without complications; E66.9 Obesity, unspecified; M19.90 Unspecified osteoarthritis, unspecified site; R53.1 Weakness
CPT/HCPCS: 29827; 29999; 93005; 36415; 82962; 85027; 87635; 80048; 81001; 83036; 71046; 93010; J2795; J2250; J3490; J0171; J3010; J1170; J2704; J0690; J0131; C9803; A4649; C1713; J0330; J1100; J1885; J2405; J2710; J2765; J7060; L3650; Q4125